=== PATIENT | male | born 1960 | race Two or more races ===

== ENCOUNTER 2018-10-23 10:18 | Emergency (ER) | payer BC ==
[2018-10-23 10:32] VITALS: BMI 29.1
[2018-10-23] MEDS ORDERED: SODIUM CHLORIDE 1,000 ML IV ONE (10:37)
[2018-10-23] MEDS ORDERED: ACETAMINOPHEN 1000 MG/100 ML VIAL (NON FORMULARY) IVPB ONE (10:37)
[2018-10-23] MEDS ORDERED: ALBUTEROL SO4 2.5/IPRATROPIUM 0.5 INH SOL 3 ML VIAL.NEB. NEB ONE ×2 (10:52→10:54)
[2018-10-23] MEDS ORDERED: methylPREDNISolone NA SUCC 125 MG/2 ML VIAL IVPUSH ONE (10:52)
[2018-10-23] MEDS ORDERED: ACETAMINOPHEN INJECTION 100 ML IVPB ONE (10:55)
[2018-10-23] MEDS ORDERED: methylPREDNISolone NA SUCC 125 MG/2 ML VIAL ONE ×2 (10:55→16:24)
[2018-10-23 10:58] LABS: VENOUS PC02 34.3 mmHg (38-52); VENOUS PH 7.47 (7.32-7.42); VENOUS PO2 37.8 mmHg (28-48)
[2018-10-23 11:02] LABS: BASO % 0.2 % (0-2.0); HEMATOCRIT 38.5 % (35.4-49); HEMOGLOBIN 13.4 GM/dL (11.7-16.9); LYMPH % 4.1 % (8-40); MCH 29.2 pg (25.7-33.7); MCHC 34.8 g/dl (32.0-35.9); MEAN CELL VOLUME 83.8 fl (80-96); MEAN PLT VOLUME 7.4 fl (7.5-11.1); MONO % 6.2 % (3.8-10.2); NEUT % 89.5 % (42.8-82.8); PLATELET COUNT 116 K/MM3 (134-434); RBC 4.59 M/mm3 (4.00-5.60); RDW 16.9 % (11.9-15.9)
[2018-10-23 11:25] LABS: INR 1.15 (0.83-1.09); PROTHROMBIN TIME (PATIENT) 13.6 SEC (9.7-13.0)
[2018-10-23 11:27] LABS: ACTIVATED PTT 29.2 SECONDS (25.2-36.5)
--- NOTE | 2018-10-23 11:36 | PDOC ---
History of Present Illness - General Chief Complaint: Shortness of Breath Stated Complaint: SICK Time Seen by Provider: 10/23/18 10:36 History Source: Patient, Family Exam Limitations: No Limitations - History of Present Illness Initial Comments: 10/23/18 11:30 58-year-old male with history of hypertension presents with sore throat, fevers , chills since last night. Family with recent influenza, patient began developing throat pain with body aches and fever/chills starting last night, slight cough but no shortness of breath, no vomiting or diarrhea. Has had progressive difficulty swallowing, no difficulty breathing. No recent travel, no recent antibiotics, no smoking. Past History - Past Medical History Allergies/Adverse Reactions: Allergies Allergy/AdvReac Type Severity Reaction Status Date / Time No Known Drug Allergies Allergy Verified 10/23/18 10:26 Home Medications: Ambulatory Orders Metoprolol Succinate [Toprol Xl] 100 mg PO DAILY 10/23/18 COPD: No HTN: Yes - Surgical History Orthopedic Surgery: Yes (BROKEN RIGHT ARM) - Immunization History Immunization Up to Date: Yes - Suicide/Smoking/Psychosocial Hx Smoking History: Never smoked Hx Alcohol Use: No Drug/Substance Use Hx: No Substance Use Type: Alcohol Hx Substance Use Treatment: No Review of Systems - Review of Systems Constitutional: Yes: Chills, Fever HEENTM: Yes: Throat Pain, Throat Swelling Respiratory: Yes: Cough, Shortness of Breath Cardiac (ROS): No: Chest Pain ABD/GI: No: Diarrhea, Nausea, Vomiting Neurological: No: Headache All Other Systems: Reviewed and Negative *Physical Exam - Vital Signs Last Vital Signs Temp Pulse Resp BP Pulse Ox 99.9 F H 122 H 22 H 115/92 93 L 10/23/18 10:26 10/23/18 10:26 10/23/18 10:26 10/23/18 10:26 10/23/18 10:26 - Physical Exam Comments: 10/23/18 11:31 Fever, tachycardia, low O2 sat GENERAL: The patient is awake, alert, and fully oriented, but in moderate distress secondary to throat pain, hot potato voice when speaking. Able to swallow but with discomfort, handling secretions. HEAD: Normal with no signs of trauma. EYES: PERRL, EOMI, sclera anicteric, conjunctiva clear with no pallor. ENT: oropharynx markedly edematous and erythematous, uvula midline but surrounded by kissing tonsils. NECK: Normal range of motion, supple with submandibular lymphadenopathy, no JVD or masses. LUNGS: Course breath sounds at the right base, scattered end expiratory wheezing but otherwise good air entry without accessory muscle use HEART: Regular rate and rhythm, normal S1 and S2 without murmur or rub. ABDOMEN: Soft/nontender/nondistended. BS wnl. No guarding or rebound. No palpable masses. No hepatosplenomegaly. EXTREMITIES: Normal range of motion, no edema. 2+ distal pulses. No cords, erythema, or tenderness. NEUROLOGICAL: Cranial nerves II through XII grossly intact. Normal speech, normal gait. PSYCH: Normal mood, normal affect. SKIN: Warm, Dry, no rashes or lesions noted. Moderate Sedation - Procedure Monitoring Vital Signs: Procedure Monitoring Vital Signs Temperature 99.9 F H 10/23/18 10:26 Pulse Rate 122 H 10/23/18 10:26 Respiratory Rate 22 H 10/23/18 10:26 Blood Pressure 115/92 10/23/18 10:26 O2 Sat by Pulse Oximetry (%) 93 L 10/23/18 10:26 Heart Score/ECG Review #1 ECG reviewed & interpreted by me at: 11:13 General ECG Interpretation: Sinus Rhythm, Normal Rate (105), Normal Intervals ( qtc 494), No acute ischemic changes ED Treatment Course - LABORATORY CBC & Chemistry Diagram: 10/23/18 10:52 10/23/18 10:52 - ADDITIONAL ORDERS Additional order review: Laboratory Results 10/23/18 10/23/18 10:52 10:52 PT with INR 13.60 H INR 1.15 H PTT (Actin FS) 29.2 VBG pH 7.47 H POC VBG pCO2 34.3 L POC VBG pO2 37.8 Mixed VBG HCO3 24.7 10/23/18 10:52 RBC 4.59 MCV 83.8 MCHC 34.8 RDW 16.9 H MPV 7.4 L Neutrophils % 89.5 H Lymphocytes % 4.1 L Monocytes % 6.2 Eosinophils % 0.0 Basophils % 0.2 - RADIOLOGY Radiology Studies Ordered: Category Date Time Status CHEST X-RAY PORTABLE* [RAD] Stat Radiology 10/23/18 10:36 Ordered - Medications Given in the ED: ED Medications Discontinued Medications Generic Name Dose Route Start Last Admin Trade Name Anu PRN Reason Stop Dose Admin Acetaminophen 1,000 mg 10/23/18 10:37 10/23/18 11:11 Ofirmev Injection - IVPB 10/23/18 10:38 1,000 mg ONCE ONE Administration Albuterol/Ipratropium 1 amp 10/23/18 10:52 10/23/18 11:11 Duoneb - NEB 10/23/18 10:53 1 amp ONCE ONE Administration Diphenhydramine HCl 50 mg 10/23/18 10:53 10/23/18 11:11 Benadryl Injection - IVPUSH 10/23/18 10:54 50 mg ONCE ONE Administration Methylprednisolone Sodium Succinate 125 mg 10/23/18 10:52 10/23/18 11:11 Solu-Medrol - IVPUSH 10/23/18 10:53 125 mg ONCE ONE Administration Medical Decision Making - Critical Care Time Total Critical Care Time (minutes): 140 Critical Care Statement: The care of this patient involved high complexity decision making to prevent further life threatening deterioration of the patient 's condition and/or to evaluate & treat vital organ system(s) failure or risk of failure. - Medical Decision Making 10/23/18 11:35 58-year-old male with febrile illness since last night, edematous oropharynx suggestive of pharyngitis, rule out underlying pneumonia or influenza. Presents with sepsis syndrome. Sepsis protocol initiated IV fluids, IV Tylenol, IV steroids, nebulizers. Add Benadryl given the edema Close airway monitoring abx for strep pharyngitis ENT consult reassess 10/23/18 15:18 White count 12 with no bands, positive neutrophilia. Lactate 3, troponin negative. Influenza negative, strep positive. Patient initially had minimal improvement after steroids and nebulizer and Benadryl, added Toradol. Patient currently feels slightly improved, rsolved stridor, but the pharyngeal edema persists with continued hoarse voice. tolerating secretions, now able to phonate better than before. ct read pending, will need transfer for ENT (no consult available) 10/23/18 16:[address], diffuse tonsillar enlargement with airway narrowing. pt clinically unchanged, phonating/protecting airway/tolerating secretions but still hoarse and with odynophagia. no ENT available, pt requests transfer to [facility]. Accepted for transfer by Dr. Pena of ENT, recommends unasyn and re-dosing of steroids, which was ordered. will proceed with transfer. *DC/Admit/Observation/Transfer Diagnosis at time of Disposition: Strep pharyngitis Sepsis Qualifiers: Sepsis type: sepsis due to unspecified organism Qualified Code(s): A41.9 - Sepsis, unspecified organism - Discharge Dispostion Condition at time of disposition: Guarded - Referrals Referrals: Wei Richey MD [Primary Care Provider] - - Patient Instructions - Post Discharge Activity - Transfer to Acute Care Facility Receiving Facility: [facility]. Accepting Physician:: Jean (ENT)
[2018-10-23] MEDS ORDERED: CEFTRIAXONE 1,000 MG in DEXTROSE 5%-WATER - 50 ML IVPB ONE (11:37)
[2018-10-23 11:38] LABS: ALBUMIN 3.4 g/dl (3.4-5.0); ALK PHOS 73 U/L (45-117); ANION GAP 13 MMOL/L (8-16); BILIRUBIN,TOTAL 1.4 mg/dL (0.2-1); BLOOD UREA NITROGEN 10 mg/dL (7-18); CALCIUM 7.6 mg/dL (8.5-10.1); CHLORIDE 95 mmol/L (98-107); CO2 23 mmol/L (21-32); CREATININE 0.9 mg/dL (0.55-1.3); GLUCOSE,RANDOM 167 mg/dL (74-106); POTASSIUM 3.6 mmol/L (3.5-5.1); SGOT/AST 69 U/L (15-37); SGPT/ALT 54 U/L (13-61); SODIUM 131 mmol/L (136-145); TOT PROT 7.2 g/dl (6.4-8.2)
[2018-10-23] MEDS ORDERED: CEFTRIAXONE 1 GM/50 ML BAG ONE (11:54)
[2018-10-23] MEDS ORDERED: KETOROLAC TROMETHAMINE 30 MG/1 ML VIAL IVPUSH ONE (11:59)
[2018-10-23] MEDS ORDERED: KETOROLAC TROMETHAMINE 30 MG/1 ML VIAL ONE (12:24)
[2018-10-23 13:11] LABS: URINE APPEARANCE CLEAR; URINE BILIRUBIN NEGATIVE (<2.0 mg/dL); URINE COLOR YELLOW; URINE GLUCOSE (UA) NEGATIVE (NEGATIVE); URINE KETONE 1+ (NEGATIVE); URINE LEUK ESTERASE NEGATIVE (NEGATIVE); URINE NITRITE NEGATIVE (NEGATIVE); URINE PROTEIN NEGATIVE (NEGATIVE); URINE UROBILINOGEN 4.0 E.U/dl mg/dL (0.2-1.0)
[2018-10-23 13:25] LABS: URINE MUCUS RARE
[2018-10-23] MEDS ORDERED: SODIUM CHLORIDE 1,000 ML IV STA (15:42)
[2018-10-23] MEDS ORDERED: AMPICILLIN NA/SULBACTAM NA 3 GM in SODIUM CHLORIDE 100 ML IVPB ONE (16:13)
[2018-10-23] MEDS ORDERED: methylPREDNISolone NA SUCC 125 MG/2 ML VIAL IVPB ONE (16:13)
--- NOTE | 2018-10-23 16:14 | EKG ---
Test Reason : Blood Pressure : / mmHG Vent. Rate : 105 BPM Atrial Rate : 105 BPM P-R Int : 156 ms QRS Dur : 104 ms QT Int : 374 ms P-R-T Axes : 014 012 036 degrees QTc Int : 494 ms SINUS TACHYCARDIA OTHERWISE NORMAL ECG WHEN COMPARED WITH ECG OF 09-OCT-2007 07:56, NO SIGNIFICANT CHANGE WAS FOUND Confirmed by ZENA TELLEZ MD ([id number]) on 10/23/2018 4:14:28 PM Referred By: Confirmed By:ZENA TELLEZ MD
[2018-10-23 16:19] VITALS: BP 143/86; PULSE 89; TEMP 98.4
== END 2018-10-23 18:08 | disposition short-term general hospital (02) ==
LOC: JER 10:18
PROC: 3E03329 Introduction of Other Anti-infective into Peripheral Vein, Percutaneous Approach (ICD-10-PCS; principal; 2018-10-23)
PROC: 3E033GC Introduction of Other Therapeutic Substance into Peripheral Vein, Percutaneous Approach (ICD-10-PCS; 2018-10-23)
PROC: 3E0337Z Introduction of Electrolytic and Water Balance Substance into Peripheral Vein, Percutaneous Approach (ICD-10-PCS; 2018-10-23)
DX: A41.9 Sepsis, unspecified organism (principal); J02.0 Streptococcal pharyngitis; I10 Essential (primary) hypertension
CPT/HCPCS: 36415; 70491-TC; 71045-TC-FY; 80053; 81003; 81015; 82803; 83605; 84484; 85025; 85610; 85730; 87040; 87186; 87804; 87880; 93005; 93010; 99283-25; J0131; J7030

== ENCOUNTER 2020-01-12 14:24 | Inpatient (IN) | payer BC ==
--- NOTE | 2020-01-12 17:52 | PDOC ---
Attending Attestation - Resident Resident Name: SamanthaJoyAriana - ED Attending Attestation I have performed the following: I have examined & evaluated the patient, The case was reviewed & discussed with the resident, I agree w/resident's findings & plan, Exceptions are as noted - HPI HPI: 01/12/20 17:51 59-year-old male who presented to the [facility] outside with complaint of sore throat for 8 days and 4 days of fever and mild cough for 3 days - Physicial Exam PE: 01/12/20 17:53 tall 59 yo male p/w fever,sore throat and cough 01/12/20 17:54 head ncat lungs cta b/l cvs tachycardia abd nontender extremities no edema skin warm and dry neuro axox3,ambulatory 01/12/20 21:10 - Medical Decision Making 01/12/20 21:13 concern for PNA/covid ct chest pending 01/13/20 01:30 CAT scan of the chest did show groundglass infiltrates and the patient required supplemental oxygen and was admitted for concerns of COVID Discharge - Discharge Information Problems reviewed: Yes Clinical Impression/Diagnosis: Hypoxia Condition: Guarded - Follow up/Referral - Patient Discharge Instructions - Post Discharge Activity
--- NOTE | 2020-01-12 18:19 | PDOC ---
History of Present Illness - General Chief Complaint: Shortness of Breath Stated Complaint: FLU LIKE SYMPTOMS Time Seen by Provider: 01/12/20 15:13 - History of Present Illness Initial Comments: 01/12/20 17:50 59 y.o. M PMH HTN, strep bacteremia 1 yr ago treated at [facility] (was intubated at this time w/ ICU stay) presenting for 8 days of generalized weakness, cough, fatigue, rhinorrhea, sore throat, shortness of breath, diffuse myalgias, abdominal pain (epigastric, non-radiating). Also endorsing 1 day of hemoptysis yesterday. Sick contacts include patients and daughter who are both getting over a cold: their symptoms are cough and rhinorrhea. Denies recent travel. Past History - Past Medical History Allergies/Adverse Reactions: Allergies Allergy/AdvReac Type Severity Reaction Status Date / Time No Known Drug Allergies Allergy Verified 10/23/18 10:26 Home Medications: Ambulatory Orders Metoprolol Succinate [Toprol Xl] 100 mg PO DAILY 10/23/18 COPD: No HTN: Yes - Surgical History Orthopedic Surgery: Yes (BROKEN RIGHT ARM) - Immunization History Immunization Up to Date: Yes - Psycho Social/Smoking Cessation Hx Smoking History: Former smoker Have you smoked in the past 12 months: No Information on smoking cessation initiated: No Hx Alcohol Use: No Drug/Substance Use Hx: No Substance Use Type: Alcohol Hx Substance Use Treatment: No Review of Systems - Review of Systems Comments:: 01/12/20 18:33 GENERAL/CONSTITUTIONAL: Fever, chills, weakness, diffuse myalgias HEENT: Sore throat, oropharynx erythematous CARDIOVASCULAR: Pleuritic chest pain RESPIRATORY: Cough, shortness of breath, hemoptysis x 1 episode yesterday GASTROINTESTINAL: Nausea. No vomiting, diarrhea or constipation. GENITOURINARY: No dysuria, frequency, or change in urination. MUSCULOSKELETAL: Diffuse myalgias SKIN: No rashes or lesions noted NEUROLOGIC: No headache, vertigo, loss of consciousness. Decreased strength HEME: No history of blood clots *Physical Exam - Vital Signs Last Vital Signs Temp Pulse Resp BP Pulse Ox 98.9 F 94 H 16 149/95 95 01/12/20 16:53 01/12/20 16:53 01/12/20 16:53 01/12/20 16:53 01/12/20 16:53 - Physical Exam 01/12/20 18:46 GENERAL: AAOx3, diaphoretic HEENT: NCAT, sclera anicteric, conjunctiva clear, oropharynx slightly erythematous NECK: Normal ROM, supple LUNGS: CTABL no wheezes/ rhonchi/ rales. No distress, speaks in full sentences. No increased work of breathing. HEART: Tachycardic, normal S1 S2, no MRG, peripheral pulses normal and equal b/l ABDOMEN: TTP epigastrium. Soft, ND, + BS. No guarding. MSK: ROM WNL. Tenderness to palpation of all extremities. EXTREMITIES: Normal inspection. No peripheral edema. NEUROLOGICAL: CN II-XII intact; no focal sensorimotor deficits. SKIN: Warm, erythematous, no rashes noted Medical Decision Making - Medical Decision Making 01/12/20 18:49 CXR, CT chest Rapid flu, RSV, resp virus panel, covid-19 testing Labs ordered: CBC, CMP, trop, cpk
[2020-01-12 19:40] LABS: BASO % 0.3 % (0-2.0); HEMATOCRIT 44.9 % (35.4-49); HEMOGLOBIN 14.9 GM/dL (11.7-16.9); LYMPH % 14.9 % (8-40); MCHC 33.3 g/dl (32.0-35.9); MEAN CELL VOLUME 84.3 fl (80-96); MEAN PLT VOLUME 8.8 fl (7.5-11.1); MONO % 6.1 % (3.8-10.2); NEUT % 78.7 % (42.8-82.8); PLATELET COUNT 225 K/MM3 (134-434); RBC 5.33 M/mm3 (4.00-5.60); RDW 14.9 % (11.9-15.9); WHITE BLOOD COUNT 6.2 K/mm3 (4.0-10.0)
[2020-01-12 19:53] LABS: INR 1.15 (0.83-1.09); PROTHROMBIN TIME (PATIENT) 13.6 SEC (9.7-13.0)
[2020-01-12 19:56] LABS: ACTIVATED PTT 34.7 SECONDS (25.2-36.5)
[2020-01-12 20:08] LABS: ALBUMIN 3.2 g/dl (3.4-5.0); BILIRUBIN,TOTAL 0.6 mg/dL (0.2-1); CALCIUM 8.1 mg/dL (8.5-10.1); CREATININE 0.7 mg/dL (0.55-1.3); TOT PROT 7.3 g/dl (6.4-8.2)
[2020-01-12] MEDS ORDERED: ACETAMINOPHEN INJECTION 100 ML IVPB ONE (20:13)
[2020-01-12 20:18] LABS: BILIRUBIN,DIRECT 0.2 mg/dL (0.0-0.2); LDH 252 U/L (87-246)
[2020-01-12] MEDS ORDERED: ACETAMINOPHEN 1000 MG/100 ML VIAL (NON FORMULARY) IVPB ONE (20:56)
--- NOTE | 2020-01-12 21:28 | PDOC ---
History of Present Illness - General Chief Complaint: Shortness of Breath Stated Complaint: FLU LIKE SYMPTOMS Time Seen by Provider: 01/12/20 15:13 - History of Present Illness Initial Comments: Patient signed out by Dr. Singh 59 y.o. M PMH HTN, strep bacteremia 1 yr ago treated at [facility] (was intubated at this time w/ ICU stay) presenting for 8 days of generalized weakness, cough, fatigue, rhinorrhea, sore throat, shortness of breath, diffuse myalgias, abdominal pain (epigastric, non-radiating). EKG: rate 94, QTc 467, NSR 01/12/20 21:25 CBC WBC 6.2 K/mm3 (4.0-10.0) 01/12/20 19:00 RBC 5.33 M/mm3 (4.00-5.60) 01/12/20 19:00 Hgb 14.9 GM/dL (11.7-16.9) 01/12/20 19:00 Hct 44.9 % (35.4-49) D 01/12/20 19:00 MCV 84.3 fl (80-96) 01/12/20 19:00 MCH 28.0 pg (25.7-33.7) 01/12/20 19:00 MCHC 33.3 g/dl (32.0-35.9) 01/12/20 19:00 RDW 14.9 % (11.9-15.9) D 01/12/20 19:00 Plt Count 225 K/MM3 (134-434) D 01/12/20 19:00 MPV 8.8 fl (7.5-11.1) D 01/12/20 19:00 Absolute Neuts (auto) 4.9 K/mm3 (1.5-8.0) 01/12/20 19:00 Neutrophils % 78.7 % (42.8-82.8) 01/12/20 19:00 Lymphocytes % 14.9 % (8-40) D 01/12/20 19:00 Monocytes % 6.1 % (3.8-10.2) 01/12/20 19:00 Eosinophils % 0.0 % (0-4.5) 01/12/20 19:00 Basophils % 0.3 % (0-2.0) 01/12/20 19:00 Nucleated RBC % 0 % (0-0) 01/12/20 19:00 No leukocytosis or anemia CMP Sodium 137 mmol/L (136-145) 01/12/20 19:00 Potassium 4.0 mmol/L (3.5-5.1) 01/12/20 19:00 Chloride 105 mmol/L (98-107) 01/12/20 19:00 Carbon Dioxide 23 mmol/L (21-32) 01/12/20 19:00 Anion Gap 10 MMOL/L (8-16) 01/12/20 19:00 BUN 12.0 mg/dL (7-18) 01/12/20 19:00 Creatinine 0.7 mg/dL (0.55-1.3) 01/12/20 19:00 Est GFR (CKD-EPI)AfAm 118.05 01/12/20 19:00 Est GFR (CKD-EPI)NonAf 101.85 01/12/20 19:00 Random Glucose 111 mg/dL (74-106) H 01/12/20 19:00 Lactic Acid 0.9 mmol/L (0.4-2.0) 01/12/20 19:00 Calcium 8.1 mg/dL (8.5-10.1) L 01/12/20 19:00 Ferritin 328.3 ng/ml (8-388) 01/12/20 19:00 Total Bilirubin 0.6 mg/dL (0.2-1) 01/12/20 19:00 Direct Bilirubin 0.2 mg/dL (0.0-0.2) 01/12/20 19:00 AST 35 U/L (15-37) 01/12/20 19:00 ALT 33 U/L (13-61) 01/12/20 19:00 Alkaline Phosphatase 67 U/L (45-117) 01/12/20 19:00 LD Total 252 U/L (87-246) H 01/12/20 19:00 Creatine Kinase 72 U/L (26-308) 01/12/20 19:00 Troponin I < 0.02 ng/ml (0.00-0.05) 01/12/20 19:00 Total Protein 7.3 g/dl (6.4-8.2) 01/12/20 19:00 Albumin 3.2 g/dl (3.4-5.0) L 01/12/20 19:00 Electrolytes unremarkable Normal Cr Tpn undetectable Normal lactate CT Chest: "EXAM#: TYPE/EXAM: RESULT: [id number] CT/CHEST CT WITHOUT CONTRAST Chest CT without contrast Clinical information: evaluate for covid Multiplanar imaging was performed. Intravenous contrast was not administered. In comparison to a prior chest CT exam of 03/16/2011 interval development of bilateral subpleural g roundglass infiltrates are seen within the upper and lower lobes bilaterally and also within the rig ht middle lobe. Note is also made of bilateral lower lobe discoid atelectasis. No pleural effusion is seen. There is no definite cardiac enlargement. No pericardial effusion is seen. Mild fusiform aneurysmal dilatation of the ascending aorta is noted with a 4 cm diameter, previously measuring 3.6 cm. The trachea and central bronchial demonstrate no ob vious pathology. There is no obvious lymphadenopathy on noncontrast imaging. The visualized osseous structures demonstrate no obvious acute abnormality. Diffuse fatty infiltration of the liver is seen as well as mild splenomegaly (14.5 cm length). Impression: Bilateral upper and lower lung field peripheral groundglass interstitial infiltrates are noted suggestive of COVID-19 pneumonitis. Bilateral lower lobe discoid atelectasis. Mild fusiform aneurysmal dilatation of the ascending aorta is noted with a 4 cm diameter, previously measuring 3.6 cm. Diffuse hepatic steatosis is noted as well as mild splenomegaly.. These findings demonstrate no obvious interval change in comparison to an abdomen/pelvic CT study of 12/12/2016. Reported By: Mauricio Tomlinson MD 01/12/20 2127 " 01/12/20 21:33 Discussed case with Alfonso Rodriguez who accepted patient for admission under Dr. Boudreaux 01/12/20 23:40 Past History - Past Medical History Allergies/Adverse Reactions: Allergies Allergy/AdvReac Type Severity Reaction Status Date / Time No Known Drug Allergies Allergy Verified 10/23/18 10:26 Home Medications: Ambulatory Orders Metoprolol Succinate [Toprol Xl] 100 mg PO DAILY 10/23/18 COPD: No HTN: Yes - Surgical History Orthopedic Surgery: Yes (BROKEN RIGHT ARM) - Immunization History Immunization Up to Date: Yes - Psycho Social/Smoking Cessation Hx Smoking History: Former smoker Have you smoked in the past 12 months: No Information on smoking cessation initiated: No Hx Alcohol Use: No Drug/Substance Use Hx: No Substance Use Type: Alcohol Hx Substance Use Treatment: No *Physical Exam - Vital Signs Last Vital Signs Temp Pulse Resp BP Pulse Ox 100.7 F H 98 H 22 H 136/92 95 01/12/20 20:22 01/12/20 20:10 01/12/20 20:10 01/12/20 20:10 01/12/20 20:10 ED Treatment Course - LABORATORY CBC & Chemistry Diagram: 01/13/20 06:59 01/13/20 06:59 - ADDITIONAL ORDERS Additional order review: Laboratory Results 01/12/20 01/12/20 01/12/20 19:00 19:00 19:00 PT with INR INR PTT (Actin FS) D-Dimer Sodium 137 Potassium 4.0 Chloride 105 Carbon Dioxide 23 Anion Gap 10 BUN 12.0 Creatinine 0.7 Est GFR (CKD-EPI)AfAm 118.05 Est GFR (CKD-EPI)NonAf 101.85 Random Glucose 111 H Lactic Acid 0.9 Calcium 8.1 L Ferritin 328.3 Total Bilirubin 0.6 Direct Bilirubin 0.2 AST 35 ALT 33 Alkaline Phosphatase 67 LD Total 252 H Creatine Kinase 72 Troponin I < 0.02 Total Protein 7.3 Albumin 3.2 L 01/12/20 01/12/20 19:00 19:00 PT with INR 13.60 H INR 1.15 H PTT (Actin FS) 34.7 D-Dimer 722 H Sodium Potassium Chloride Carbon Dioxide Anion Gap BUN Creatinine Est GFR (CKD-EPI)AfAm Est GFR (CKD-EPI)NonAf Random Glucose Lactic Acid Calcium Ferritin Total Bilirubin Direct Bilirubin AST ALT Alkaline Phosphatase LD Total Creatine Kinase Troponin I Total Protein Albumin 01/12/20 19:00 RBC 5.33 MCV 84.3 MCHC 33.3 RDW 14.9 D MPV 8.8 D Neutrophils % 78.7 Lymphocytes % 14.9 D Monocytes % 6.1 Eosinophils % 0.0 Basophils % 0.3 - Medications Given in the ED: ED Medications Discontinued Medications Generic Name Dose Route Start Last Admin Trade Name Freq PRN Reason Stop Dose Admin Acetaminophen 1,000 mg 01/12/20 20:56 01/12/20 20:56 Ofirmev Injection - IVPB 01/12/20 20:57 1,000 mg NOW ONE Administration Discharge - Discharge Information Problems reviewed: Yes Clinical Impression/Diagnosis: Hypoxia, Suspected 2019 novel coronavirus infection Condition: Guarded - Admission Yes - Follow up/Referral - Patient Discharge Instructions - Post Discharge Activity
[2020-01-12 21:41] LABS: PH,URINE 6.5 (5.0-8.0); URINE APPEARANCE CLEAR; URINE BILIRUBIN NEGATIVE (NEGATIVE); URINE COLOR DK YELLOW; URINE GLUCOSE (UA) NEGATIVE (NEGATIVE); URINE KETONE NEGATIVE (NEGATIVE); URINE LEUK ESTERASE NEGATIVE (NEGATIVE); URINE NITRITE NEGATIVE (NEGATIVE); URINE PROTEIN TRACE (NEGATIVE)
--- NOTE | 2020-01-13 00:34 | HP ---
CHIEF COMPLAINT: cough, SOB PCP: Rossi HISTORY OF PRESENT ILLNESS: This is a 59 year old male with a past medical history of HTN and strep bacteremia 1 y ago who presented to the ED with an 8 day history of cough, SOB, weakness, sore/dry throat. ER course was notable for: (1) CT chest with bilateral groundglass interstitial infiltrates (2) WBC 6.2 with 14.9% lymphocytes (3) D-Dimer 722, LDH 252 (4) Influenza A/B & RSV negative Recent Travel: pt denies PAST MEDICAL HISTORY: HTN, strep bacteremia 1y ago PAST SURGICAL HISTORY: hernia repair, ventral with mesh Social History: Smoking: pt denies Alcohol: pt denies Drugs: pt denies Occupation: works cleaning/stripping floors in [employer] Allergies No Known Drug Allergies Allergy (Verified 10/23/18 10:26) HOME MEDICATIONS: Pt denies current medications, states he was on metoprolol but it was DC as his BP was WNL REVIEW OF SYSTEMS CONSTITUTIONAL: Present: generalized weakness, malaise Absent: fever, chills, diaphoresis, loss of appetite, weight change HEENT: Absent: rhinorrhea, nasal congestion, throat pain, throat swelling, difficulty swallowing, mouth swelling, ear pain, eye pain, visual changes CARDIOVASCULAR: Absent: chest pain, syncope, palpitations, irregular heart rate, lightheadedness, peripheral edema RESPIRATORY: Present: cough, shortness of breath Absent: orthopnea, wheezing, stridor, hemoptysis GASTROINTESTINAL: Absent: abdominal pain, abdominal distension, nausea, vomiting, diarrhea, constipation, melena, hematochezia GENITOURINARY: Absent: dysuria, frequency, urgency, hesitancy, hematuria, flank pain, genital pain MUSCULOSKELETAL: Absent: myalgia, arthralgia, joint swelling, back pain, neck pain SKIN: Absent: rash, itching, pallor HEMATOLOGIC/IMMUNOLOGIC: Absent: easy bleeding, easy bruising, lymphadenopathy, frequent infections ENDOCRINE: Absent: unexplained weight gain, unexplained weight loss, heat intolerance, cold intolerance NEUROLOGIC: Absent: headache, focal weakness or paresthesias, dizziness, unsteady gait, seizure, mental status changes, bladder or bowel incontinence PSYCHIATRIC: Absent: anxiety, depression, suicidal or homicidal ideation, hallucinations. PHYSICAL EXAMINATION Vital Signs - 24 hr 01/12/20 01/12/20 01/12/20 15:17 16:53 20:10 Temperature 99.0 F 98.9 F 105 F H Pulse Rate 103 H 94 H Pulse Rate [ 98 H Right Radial] Respiratory 20 16 22 H Rate Blood Pressure 146/96 149/95 Blood Pressure 136/92 [Right Arm] O2 Sat by Pulse 100 95 95 Oximetry (%) 01/12/20 20:22 Temperature 100.7 F H Pulse Rate Pulse Rate [ Right Radial] Respiratory Rate Blood Pressure Blood Pressure [Right Arm] O2 Sat by Pulse Oximetry (%) GENERAL: Awake, alert, and fully oriented, in no acute distress. HEAD: Normal with no signs of trauma. EYES: Pupils equal, round and reactive to light, extraocular movements intact, sclera anicteric, conjunctiva clear. No lid lag. EARS, NOSE, THROAT: Ears normal, nares patent, oropharynx clear without exudates. Moist mucous membranes. NECK: Normal range of motion, supple without lymphadenopathy, JVD, or masses. LUNGS: Breath sounds equal. No wheezes. No accessory muscle use. Initially with crackles bilat bases, cleared with deep breathing, now CTA HEART: Regular rate and rhythm, normal S1 and S2 without murmur, rub or gallop. ABDOMEN: Soft, nontender, not distended, normoactive bowel sounds, no guarding, no rebound, no masses. No hepatomegaly or splenomegaly. MUSCULOSKELETAL: Normal range of motion at all joints. No bony deformities or tenderness. No CVA tenderness. UPPER EXTREMITIES: 2+ pulses, warm, well-perfused. No cyanosis. No clubbing. No peripheral edema. LOWER EXTREMITIES: 2+ pulses, warm, well-perfused. No calf tenderness. No peripheral edema. NEUROLOGICAL: Cranial nerves II-XII intact. Normal speech. Normal gait. PSYCHIATRIC: Cooperative. Good eye contact. Appropriate mood and affect. SKIN: Warm, dry, normal turgor, no rashes or lesions noted, normal capillary refill. Laboratory Results - last 24 hr 01/12/20 01/12/20 01/12/20 19:00 19:00 19:00 WBC 6.2 RBC 5.33 Hgb 14.9 Hct 44.9 D MCV 84.3 MCH 28.0 MCHC 33.3 RDW 14.9 D Plt Count 225 D MPV 8.8 D Absolute Neuts (auto) 4.9 Neutrophils % 78.7 Lymphocytes % 14.9 D Monocytes % 6.1 Eosinophils % 0.0 Basophils % 0.3 Nucleated RBC % 0 PT with INR 13.60 H INR 1.15 H PTT (Actin FS) 34.7 D-Dimer 722 H Sodium 137 Potassium 4.0 Chloride 105 Carbon Dioxide 23 Anion Gap 10 BUN 12.0 Creatinine 0.7 Est GFR (CKD-EPI)AfAm 118.05 Est GFR (CKD-EPI)NonAf 101.85 Random Glucose 111 H Lactic Acid 0.9 Calcium 8.1 L Ferritin 328.3 Total Bilirubin 0.6 Direct Bilirubin 0.2 AST 35 ALT 33 Alkaline Phosphatase 67 LD Total 252 H Creatine Kinase 72 Troponin I < 0.02 Total Protein 7.3 Albumin 3.2 L Urine Color Urine Appearance Urine pH Ur Specific [place] Urine Protein Urine Glucose (UA) Urine Ketones Urine Blood Urine Nitrite Urine Bilirubin Urine Urobilinogen Ur Leukocyte Esterase Influenza A (Rapid) Influenza B (Rapid) RSV Rapid 01/12/20 01/12/20 01/12/20 19:16 19:16 21:00 WBC RBC Hgb Hct MCV MCH MCHC RDW Plt Count MPV Absolute Neuts (auto) Neutrophils % Lymphocytes % Monocytes % Eosinophils % Basophils % Nucleated RBC % PT with INR INR PTT (Actin FS) D-Dimer Sodium Potassium Chloride Carbon Dioxide Anion Gap BUN Creatinine Est GFR (CKD-EPI)AfAm Est GFR (CKD-EPI)NonAf Random Glucose Lactic Acid Calcium Ferritin Total Bilirubin Direct Bilirubin AST ALT Alkaline Phosphatase LD Total Creatine Kinase Troponin I Total Protein Albumin Urine Color Dk yellow Urine Appearance Clear Urine pH 6.5 Ur Specific [place] 1.024 Urine Protein Trace Urine Glucose (UA) Negative Urine Ketones Negative Urine Blood Negative Urine Nitrite Negative Urine Bilirubin Negative Urine Urobilinogen 2.0 Ur Leukocyte Esterase Negative Influenza A (Rapid) Negative Influenza B (Rapid) Negative RSV Rapid Negative Radiology Reports CT chest without contrast Impression: Bilateral upper and lower lung field peripheral ground glass interstitial infiltrates are noted suggestive of COVID-19 pneumonitis. Bilateral lower lobe discoid atelectasis. Mild fusiform aneurysmal dilatation of the ascending aorta is noted with a 4 cm diameter, previously measuring 3.6 cm. Diffuse hepatic steatosis is noted as well as mild splenomegaly. These findings demonstrate no obvious interval change in comparison to an abdomen/pelvic CT study of 12/12/2016. Reported By: Mauricio Tomlinson MD 01/12/202126 ECG Normal sinus rhythm vent rate 94, QTC [address]/T wave changes ASSESSMENT/PLAN: 59yM with PMH HTN, Strep bacteremia p/w cough, SOB, malaise now admitted with pneumonia, highly suspicious for COVID19. Early acute respiratory failure in s/o CAP likely due to COVID19 - f/u COVID 19 results - cont oxygen via NC, titrate to SPO2>92 - ceftriaxone 1g IV x 7 days and azithromycin IV x 3 days - albuterol MDI 2 puffs q4h PRN SOB - incentive spirometer - ID consult for possible plaquenil initiation - no IV fluids, conservative fluid management approach HTN - off meds, monitor BP and initiate as indicated DVT PPX - heparin SC FEN - po fluids as tolerated - BMP, replete lytes PRN - low sodium diet as tolerated Dispo: Pt requires inpatient management of his emergent condition. Family Medical History Family Hx Diabetes: Mother (), Father () Visit type - Emergency Visit Emergency Visit: Yes ED Registration Date: 01/12/20 Care time: The patient presented to the Emergency Department on the above date and was hospitalized for further evaluation of their emergent condition. - New Patient This patient is new to me today: Yes Date on this admission: 01/13/20 - Critical Care Critical Care patient: No
[2020-01-13] MEDS ORDERED: BENZOCAINE/MENTH/CETYLPYRD CL 1 EACH LOZENGE MM PRN (03:17)
[2020-01-13] MEDS ORDERED: CEFTRIAXONE 1 GM/50 ML BAG ONE (03:17)
[2020-01-13] MEDS: CEFTRIAXONE 1 GM in DEXTROSE 5%-WATER - 50 ML IVPB SCH ×2 (03:31→09:39)
[2020-01-13] MEDS ORDERED: ALBUTEROL SO4 HFA INHALER IH PRN ×2 (03:50→03:51)
[2020-01-13 07:20] LABS: BASO % 0.2 % (0-2.0); EOS % 0.2 % (0-4.5); HEMATOCRIT 40.9 % (35.4-49); HEMOGLOBIN 13.9 GM/dL (11.7-16.9); LYMPH % 19.1 % (8-40); MCH 28.4 pg (25.7-33.7); MEAN CELL VOLUME 83.6 fl (80-96); MEAN PLT VOLUME 8.3 fl (7.5-11.1); MONO % 6.9 % (3.8-10.2); NEUT % 73.6 % (42.8-82.8); PLATELET COUNT 214 K/MM3 (134-434); RBC 4.89 M/mm3 (4.00-5.60); RDW 14.7 % (11.9-15.9); WHITE BLOOD COUNT 5.8 K/mm3 (4.0-10.0)
[2020-01-13 07:59] LABS: ALBUMIN 2.8 g/dl (3.4-5.0); BILIRUBIN,TOTAL 0.6 mg/dL (0.2-1); BLOOD UREA NITROGEN 12.2 mg/dL (7-18); CALCIUM 7.7 mg/dL (8.5-10.1); CREATININE 0.7 mg/dL (0.55-1.3); PHOSPHOROUS 3.4 mg/dL (2.5-4.9); TOT PROT 6.6 g/dl (6.4-8.2)
[2020-01-13] MEDS ORDERED: AZITHROMYCIN IVPB 500 MG/250 ML BAG IVPB ONE (09:24)
[2020-01-13] MEDS ORDERED: HEPARIN NA (PORCINE) 5,000 UNITS/ML 1ML VIAL ONE ×2 (09:24→23:13)
[2020-01-13] MEDS: HEPARIN NA (PORCINE) 5,000 UNITS/ML 1ML VIAL SQ SCH ×2 (09:38→23:21)
[2020-01-13] MEDS ORDERED: AZITHROMYCIN IVPB 500 MG/250 ML BAG IVPB SCH (10:00)
--- NOTE | 2020-01-13 10:18 | EKG ---
Test Reason : Blood Pressure : / mmHG Vent. Rate : 094 BPM Atrial Rate : 094 BPM P-R Int : 152 ms QRS Dur : 104 ms QT Int : 374 ms P-R-T Axes : 018 -04 027 degrees QTc Int : 467 ms NORMAL SINUS RHYTHM NORMAL ECG WHEN COMPARED WITH ECG OF 23-OCT-2018 11:13, NO SIGNIFICANT CHANGE WAS FOUND Confirmed by Freddie Valverde MD ([id number]) on 01/13/2020 10:18:16 AM Referred By: Confirmed By:Freddie Valverde MD
--- NOTE | 2020-01-13 14:47 | PN ---
Progress Note (short form) - Note Progress Note: Events noted History and physical from the hospitalist noted Pt not examined due to lack of PPE Pt observed to be comfortable in ER- no respiratory distress Vital Signs - 24 hr 01/12/20 01/12/20 01/13/20 20:10 20:22 03:42 Temperature 105 F H 100.7 F H Pulse Rate [ 98 H 84 Right Radial] Respiratory 22 H 20 Rate Blood Pressure 136/92 131/85 [Right Arm] O2 Sat by Pulse 95 96 Oximetry (%) 01/13/20 01/13/20 07:00 13:31 Temperature 99.0 F 98.7 F Pulse Rate [ 88 93 H Right Radial] Respiratory 16 19 Rate Blood Pressure 138/79 136/87 [Right Arm] O2 Sat by Pulse 98 97 Oximetry (%) Current Medications Generic Name Dose Route Start Last Admin Trade Name Freq PRN Reason Stop Dose Admin Albuterol Sulfate 2 puff 01/13/20 03:51 Ventolin Hfa Inhaler - IH Q4H PRN SHORT OF BREATH/WHEEZING Benzocaine/Menthol 1 each 01/13/20 03:17 Cepacol Lozenge - MM PRN PRN SORE THROAT Heparin Sodium (Porcine) 5,000 unit 01/13/20 10:00 01/13/20 09:38 Heparin - SQ 5,000 unit BID EKATERINA Administration Azithromycin 500 mg in 250 mls @ 250 mls/hr 01/13/20 10:00 01/13/20 09:38 Zithromax 500mg Ivpb (Pre-Docked) IVPB 01/15/20 10:59 250 mls/hr DAILY EKATERINA Administration Ceftriaxone Sodium 1 gm/ 50 mls @ 100 mls/hr 01/13/20 00:47 01/13/20 09:39 Dextrose IVPB 01/20/20 00:46 Not Given DAILY EKATERINA Protocol Laboratory Last Values WBC 5.8 K/mm3 (4.0-10.0) 01/13/20 06:59 RBC 4.89 M/mm3 (4.00-5.60) 01/13/20 06:59 Hgb 13.9 GM/dL (11.7-16.9) 01/13/20 06:59 Hct 40.9 % (35.4-49) 01/13/20 06:59 MCV 83.6 fl (80-96) 01/13/20 06:59 MCH 28.4 pg (25.7-33.7) 01/13/20 06:59 MCHC 34.0 g/dl (32.0-35.9) 01/13/20 06:59 RDW 14.7 % (11.9-15.9) 01/13/20 06:59 Plt Count 214 K/MM3 (134-434) 01/13/20 06:59 MPV 8.3 fl (7.5-11.1) 01/13/20 06:59 Absolute Neuts (auto) 4.3 K/mm3 (1.5-8.0) 01/13/20 06:59 Neutrophils % 73.6 % (42.8-82.8) 01/13/20 06:59 Lymphocytes % 19.1 % (8-40) D 01/13/20 06:59 Monocytes % 6.9 % (3.8-10.2) 01/13/20 06:59 Eosinophils % 0.2 % (0-4.5) D 01/13/20 06:59 Basophils % 0.2 % (0-2.0) 01/13/20 06:59 Nucleated RBC % 0 % (0-0) 01/13/20 06:59 PT with INR 13.60 SEC (9.7-13.0) H 01/12/20 19:00 INR 1.15 (0.83-1.09) H 01/12/20 19:00 PTT (Actin FS) 34.7 SECONDS (25.2-36.5) 01/12/20 19:00 D-Dimer 722 ng/ml (0-500) H 01/12/20 19:00 Sodium 137 mmol/L (136-145) 01/13/20 06:59 Potassium 4.0 mmol/L (3.5-5.1) 01/13/20 06:59 Chloride 105 mmol/L (98-107) 01/13/20 06:59 Carbon Dioxide 25 mmol/L (21-32) 01/13/20 06:59 Anion Gap 7 MMOL/L (8-16) L 01/13/20 06:59 BUN 12.2 mg/dL (7-18) 01/13/20 06:59 Creatinine 0.7 mg/dL (0.55-1.3) 01/13/20 06:59 Est GFR (CKD-EPI)AfAm 118.05 01/13/20 06:59 Est GFR (CKD-EPI)NonAf 101.85 01/13/20 06:59 Random Glucose 112 mg/dL (74-106) H 01/13/20 06:59 Lactic Acid 0.9 mmol/L (0.4-2.0) 01/12/20 19:00 Calcium 7.7 mg/dL (8.5-10.1) L 01/13/20 06:59 Phosphorus 3.4 mg/dL (2.5-4.9) 01/13/20 06:59 Magnesium 2.0 mg/dL (1.8-2.4) 01/13/20 06:59 Ferritin 328.3 ng/ml (8-388) 01/12/20 19:00 Total Bilirubin 0.6 mg/dL (0.2-1) 01/13/20 06:59 Direct Bilirubin 0.2 mg/dL (0.0-0.2) 01/12/20 19:00 AST 37 U/L (15-37) 01/13/20 06:59 ALT 31 U/L (13-61) 01/13/20 06:59 Alkaline Phosphatase 58 U/L (45-117) 01/13/20 06:59 LD Total 252 U/L (87-246) H 01/12/20 19:00 Creatine Kinase 72 U/L (26-308) 01/12/20 19:00 Troponin I < 0.02 ng/ml (0.00-0.05) 01/12/20 19:00 Total Protein 6.6 g/dl (6.4-8.2) 01/13/20 06:59 Albumin 2.8 g/dl (3.4-5.0) L 01/13/20 06:59 Urine Color Dk yellow 01/12/20 21:00 Urine Appearance Clear 01/12/20 21:00 Urine pH 6.5 (5.0-8.0) 01/12/20 21:00 Ur Specific [place] 1.024 (1.010-1.035) 01/12/20 21:00 Urine Protein Trace (NEGATIVE) 01/12/20 21:00 Urine Glucose (UA) Negative (NEGATIVE) 01/12/20 21:00 Urine Ketones Negative (NEGATIVE) 01/12/20 21:00 Urine Blood Negative (NEGATIVE) 01/12/20 21:00 Urine Nitrite Negative (NEGATIVE) 01/12/20 21:00 Urine Bilirubin Negative (NEGATIVE) 01/12/20 21:00 Urine Urobilinogen 2.0 mg/dL (0.2-1.0) 01/12/20 21:00 Ur Leukocyte Esterase Negative (NEGATIVE) 01/12/20 21:00 COVID-19 (NOLVIA) Cancelled 01/12/20 20:55 Influenza A (Rapid) Negative (Negative) 01/12/20 19:16 Influenza B (Rapid) Negative (Negative) 01/12/20 19:16 RSV Rapid Negative (Negative) 01/12/20 19:16 cultures both blood and urine pending COVID 19--I called the lab-- they received the specimen-- not cancelled PLAN ASSESSMENT/PLAN: 59yM with PMH HTN, Strep bacteremia p/w cough, SOB, malaise now admitted with pneumonia, highly suspicious for COVID19. Early acute respiratory failure in s/o CAP likely due to COVID19 - f/u COVID 19 results - cont oxygen via NC, titrate to SPO2>92 - ceftriaxone 1g IV x 7 days and azithromycin IV x 3 days - albuterol MDI 2 puffs q4h PRN SOB - incentive spirometer - ID consult for possible plaquenil initiation - no IV fluids, conservative fluid management approach HTN - off meds,BP acceptable DVT PPX - heparin SC FEN - po fluids as tolerated - BMP, replete lytes PRN - low sodium diet as tolerated Problem List - Problems (1) Acute respiratory distress Code(s): R06.03 - ACUTE RESPIRATORY DISTRESS (2) Pneumonia Code(s): J18.9 - PNEUMONIA, UNSPECIFIED ORGANISM (3) Hypoxia Code(s): R09.02 - HYPOXEMIA (4) Sepsis Code(s): A41.9 - SEPSIS, UNSPECIFIED ORGANISM Qualifiers: Sepsis type: sepsis due to unspecified organism Qualified Code(s): A41.9 - Sepsis, unspecified organism
--- NOTE | 2020-01-13 17:14 | PN ---
Progress Note (short form) - Note Progress Note: ID CONSULT DICTATED HIGH PROBABILITY COVID-19 INFECTION AIRBORNE PRECAUTIONS START HYDROXYCHLOROQUINE
--- NOTE | 2020-01-13 18:05 | CONS ---
DATE OF CONSULTATION: DATE OF DICTATION: 01/13/2020 HISTORY OF PRESENT ILLNESS: The patient is a 59-year-old male who was evaluated for probable coronavirus. He was admitted to the hospital with a 1-week history of sore throat, a 3-4 day history of fever, cough, shortness of breath, arthralgias, myalgias. He had apparently been in contact with family members who had similar symptoms. He was evaluated in the emergency room where Covid-19 testing was performed. His course has been complicated by high-grade fever to 105. At the present time he is awake, supine on the stretcher. He complains of sore throat. His breathing is nonlabored on nasal cannula O2. PAST MEDICAL HISTORY: Positive for hypertension. PAST SURGICAL HISTORY: Status post ventral hernia repair with mesh. ALLERGIES: No known drug allergies. MEDICATIONS: Include ceftriaxone, Zithromax, albuterol, heparin. SOCIAL HISTORY: He resides in the community with his family. He works stripping floors. He is a former smoker, occasional ETOH. SYSTEMS REVIEW: Neurologic: No loss of consciousness, seizure activity or focal weakness. Cardiac: Negative chest pain or palpitations. Respiratory: As per HPI. Gastrointestinal: Negative vomiting, positive diarrhea. Genitourinary: Negative for urinary tract infection. LABORATORY DATA: White count 5.8, 73 neutrophils, 19 lymphocytes, 6 monocytes. Hematocrit 40.9. Platelets 214. Creatinine 0.7. Urinalysis negative. Influenza and RSV swabs negative. CAT scan of the chest shows ground glass infiltrates bilaterally. PHYSICAL EXAMINATION: General: He is awake, supine in the stretcher. His breathing is nonlabored on nasal cannula O2. Vital Signs: Temperature 98.7, T-Max 105, blood pressure 136/87, pulse 93, regular, respirations 19 per minute. HEENT: Sclerae are anicteric. Oropharynx injected. Heart Sounds: S1, S2. Lungs: Scattered rhonchi. Abdomen: Soft, nontender. Extremities: Negative for edema. IMPRESSION: 1. High probability Covid-19 infection. 2. Community-acquired pneumonia less likely. PLAN: Agree with airborne precautions pending Covid-19 testing. Start Plaquenil 400 mg p.o. b.i.d. for 24 hours, then 200 mg p.o. every 12 hours. Ceftriaxone 2 g IV piggyback daily for possible secondary bacterial infection. Will follow. Thank you for your kind referral. KESHIA MURPHY M.D. [id number]
[2020-01-13] MEDS ORDERED: CEFTRIAXONE 2 GM/100 ML BAG IVPB ONE (18:08)
[2020-01-13] MEDS: CEFTRIAXONE 2 GM in DEXTROSE 5%-WATER 100 ML IVPB SCH (18:20)
[2020-01-13] MEDS ORDERED: HYDROXYCHLOROQUINE SO4 200 MG TABLET (FP) ONE (23:13)
[2020-01-13] MEDS: HYDROXYCHLOROQUINE SO4 200 MG TABLET (FP) PO SCH (23:21)
[2020-01-14 01:47] VITALS: BMI 27.3
[2020-01-14] MEDS: HEPARIN NA (PORCINE) 5,000 UNITS/ML 1ML VIAL SQ SCH ×2 (10:24→23:36)
[2020-01-14] MEDS: HYDROXYCHLOROQUINE SO4 200 MG TABLET (FP) PO SCH ×2 (10:24→23:37)
[2020-01-14] MEDS ORDERED: DEXTROSE 5%-WATER 100 ML IVPB ONE (11:15)
--- NOTE | 2020-01-14 11:43 | PN ---
Progress Note (short form) - Note Progress Note: Events noted pt examined on isolation has a headache fever this AM sore throat no SOB No coughing no diarrhea Vital Signs - 24 hr 01/13/20 01/13/20 01/13/20 13:31 20:39 20:40 Temperature 98.7 F Pulse Rate Pulse Rate [ 93 H 102 H Right Radial] Respiratory 19 18 Rate Blood Pressure Blood Pressure 136/87 139/83 [Right Arm] O2 Sat by Pulse 97 95 94 L Oximetry (%) 01/14/20 01/14/20 01/14/20 00:52 01:21 04:00 Temperature 102 F H 99.1 F Pulse Rate 83 85 Pulse Rate [ Right Radial] Respiratory 20 18 20 Rate Blood Pressure 140/100 131/85 Blood Pressure [Right Arm] O2 Sat by Pulse 93 L 93 L Oximetry (%) Current Medications Generic Name Dose Route Start Last Admin Trade Name Freq PRN Reason Stop Dose Admin Acetaminophen 650 mg 01/14/20 09:40 Tylenol - PO Q6H PRN FEVER Albuterol Sulfate 2 puff 01/13/20 03:51 Ventolin Hfa Inhaler - IH Q4H PRN SHORT OF BREATH/WHEEZING Benzocaine/Menthol 1 each 01/13/20 03:17 01/13/20 18:42 Cepacol Lozenge - MM 1 each PRN PRN Administration SORE THROAT Heparin Sodium (Porcine) 5,000 unit 01/13/20 10:00 01/13/20 23:21 Heparin - SQ 5,000 unit BID EKATERINA Administration Hydroxychloroquine Sulfate 200 mg 01/14/20 22:00 Plaquenil - PO BID [facility] Ceftriaxone Sodium 2 gm/ 100 mls @ 200 mls/hr 01/13/20 17:15 01/13/20 18:20 Dextrose IVPB 200 mls/hr DAILY EKATERINA Administration Protocol Laboratory Results - last 24 hr 01/12/20 20:55 COVID-19 (NOLVIA) Cancelled Microbiology 01/12/20 21:00 Urine Culture - Final Urine - Urine Clean Catch NO GROWTH OBTAINED 01/12/20 19:00 Blood Culture - Preliminary Blood - Peripheral Venous NO GROWTH OBTAINED AFTER 24 HOURS, INCUBATION TO CONTINUE FOR 4 DAYS. 01/12/20 19:00 Blood Culture - Preliminary Blood - Peripheral Venous NO GROWTH OBTAINED AFTER 24 HOURS, INCUBATION TO CONTINUE FOR 4 DAYS. COVID 19--I called the lab-- they received the specimen-- not cancelled PLAN ASSESSMENT/PLAN: 59yM with PMH HTN, Strep bacteremia p/w cough, SOB, malaise now admitted with pneumonia, highly suspicious for COVID19. Early acute respiratory failure in s/o CAP likely due to COVID19 - f/u COVID 19 results - cont oxygen via [place], titrate to SPO2>92 - ceftriaxone 1g IV x 7 days and azithromycin IV x 3 days - albuterol MDI 2 puffs q4h PRN SOB - incentive spirometer - ID consult noted on plaquenil - no IV fluids, conservative fluid management approach HTN - will resume meds DVT PPX - heparin SC FEN - po fluids as tolerated - BMP, replete lytes PRN - low sodium diet as tolerated Problem List - Problems (1) Acute respiratory distress Code(s): R06.03 - ACUTE RESPIRATORY DISTRESS (2) Pneumonia Code(s): J18.9 - PNEUMONIA, UNSPECIFIED ORGANISM (3) Hypoxia Code(s): R09.02 - HYPOXEMIA (4) Sepsis Code(s): A41.9 - SEPSIS, UNSPECIFIED ORGANISM Qualifiers: Sepsis type: sepsis due to unspecified organism Qualified Code(s): A41.9 - Sepsis, unspecified organism
[2020-01-14] MEDS: CEFTRIAXONE 2 GM in DEXTROSE 5%-WATER 100 ML IVPB SCH (12:24)
[2020-01-15 07:37] LABS: HEMATOCRIT 39.8 % (35.4-49); HEMOGLOBIN 13.4 GM/dL (11.7-16.9); MCH 28.1 pg (25.7-33.7); MCHC 33.5 g/dl (32.0-35.9); MEAN CELL VOLUME 83.8 fl (80-96); MEAN PLT VOLUME 8.2 fl (7.5-11.1); PLATELET COUNT 289 K/MM3 (134-434); RBC 4.75 M/mm3 (4.00-5.60); RDW 14.6 % (11.9-15.9); WHITE BLOOD COUNT 6.1 K/mm3 (4.0-10.0)
[2020-01-15 08:13] LABS: ALBUMIN 2.7 g/dl (3.4-5.0); BILIRUBIN,TOTAL 0.7 mg/dL (0.2-1); BLOOD UREA NITROGEN 12.4 mg/dL (7-18); CALCIUM 8.1 mg/dL (8.5-10.1); CREATININE 0.6 mg/dL (0.55-1.3); POTASSIUM 4.2 mmol/L (3.5-5.1); TOT PROT 6.8 g/dl (6.4-8.2)
[2020-01-15] MEDS ORDERED: DEXTROSE 5%-WATER 100 ML IVPB ONE (09:43)
[2020-01-15] MEDS: HEPARIN NA (PORCINE) 5,000 UNITS/ML 1ML VIAL SQ SCH ×2 (10:13→22:02)
[2020-01-15] MEDS: HYDROXYCHLOROQUINE SO4 200 MG TABLET (FP) PO SCH ×2 (10:14→22:02)
[2020-01-15] MEDS: CEFTRIAXONE 2 GM in DEXTROSE 5%-WATER 100 ML IVPB SCH (10:15)
[2020-01-15] MEDS: ACETAMINOPHEN 325 MG TABLET (FP) PO PRN ×2 (10:24→22:03)
--- NOTE | 2020-01-15 13:45 | PN ---
Progress Note, Physician History of Present Illness: pt seen/ examined today chart is reviewed awake/ comfortable c/c- sore throat covid + - Current Medication List Current Medications: Active Medications Acetaminophen (Tylenol -) 650 mg PO Q6H PRN PRN Reason: FEVER Last Admin: 01/15/20 10:24 Dose: 650 mg Documented by: Albuterol Sulfate (Ventolin Hfa Inhaler -) 2 puff IH Q4H PRN PRN Reason: SHORT OF BREATH/WHEEZING Benzocaine/Menthol (Cepacol Lozenge -) 1 each MM PRN PRN PRN Reason: SORE THROAT Last Admin: 01/13/20 18:42 Dose: 1 each Documented by: Heparin Sodium (Porcine) (Heparin -) 5,000 unit SQ BID [facility] Last Admin: 01/15/20 10:13 Dose: 5,000 unit Documented by: Hydroxychloroquine Sulfate (Plaquenil -) 200 mg PO BID [facility] Last Admin: 01/15/20 10:14 Dose: 200 mg Documented by: Ceftriaxone Sodium 2 gm/ (Dextrose) 100 mls @ 200 mls/hr IVPB DAILY [facility]; Protocol Last Admin: 01/15/20 10:15 Dose: 200 mls/hr Documented by: Metoprolol Succinate (Toprol Xl -) 100 mg PO DAILY [facility] Last Admin: 01/15/20 10:13 Dose: 100 mg Documented by: - Objective Vital Signs: Vital Signs Temperature 97.5 F L 01/15/20 06:00 Pulse Rate 73 01/15/20 06:00 Respiratory Rate 20 01/15/20 06:00 Blood Pressure 124/82 01/15/20 06:00 O2 Sat by Pulse Oximetry (%) 96 01/14/20 21:00 Constitutional: Yes: No Distress, Calm Eyes: Yes: Conjunctiva Clear Neck: Yes: Supple Cardiovascular: Yes: Regular Rate and Rhythm Respiratory: Yes: Rhonchi Gastrointestinal: Yes: Soft Edema: No Neurological: Yes: Alert Psychiatric: Yes: Alert Labs: CBC, BMP 01/15/20 07:15 01/15/20 07:15 INR, PTT INR 1.15 (0.83-1.09) H 01/12/20 19:00 - ....Imaging Chest X-ray: Report Reviewed Cat Scan: Report Reviewed Problem List - Problems (1) Coronavirus infection Code(s): B34.2 - CORONAVIRUS INFECTION, UNSPECIFIED (2) Pneumonia Code(s): J18.9 - PNEUMONIA, UNSPECIFIED ORGANISM Assessment/Plan Covid 19 +. Clinically stable. Continue present care. Monitor labs Will follow D/W RN also. Time spend approx 30 min
[2020-01-16 07:33] LABS: BASO % 0.6 % (0-2.0); EOS % 2.2 % (0-4.5); HEMATOCRIT 43.1 % (35.4-49); HEMOGLOBIN 14.3 GM/dL (11.7-16.9); MCH 28.2 pg (25.7-33.7); MCHC 33.3 g/dl (32.0-35.9); MEAN CELL VOLUME 84.6 fl (80-96); MEAN PLT VOLUME 8.2 fl (7.5-11.1); MONO % 9.5 % (3.8-10.2); NEUT % 62.7 % (42.8-82.8); PLATELET COUNT 383 K/MM3 (134-434); RDW 14.2 % (11.9-15.9); WHITE BLOOD COUNT 5.4 K/mm3 (4.0-10.0)
[2020-01-16 08:00] LABS: BILIRUBIN,TOTAL 0.8 mg/dL (0.2-1); BLOOD UREA NITROGEN 12.2 mg/dL (7-18); CALCIUM 8.5 mg/dL (8.5-10.1); CREATININE 0.8 mg/dL (0.55-1.3); POTASSIUM 4.4 mmol/L (3.5-5.1); TOT PROT 7.6 g/dl (6.4-8.2)
[2020-01-16] MEDS ORDERED: DEXTROSE 5%-WATER 100 ML IVPB ONE (08:23)
[2020-01-16] MEDS: CEFTRIAXONE 2 GM in DEXTROSE 5%-WATER 100 ML IVPB SCH (10:28)
[2020-01-16] MEDS: HYDROXYCHLOROQUINE SO4 200 MG TABLET (FP) PO SCH ×2 (10:28→22:32)
[2020-01-16] MEDS: HEPARIN NA (PORCINE) 5,000 UNITS/ML 1ML VIAL SQ SCH ×2 (10:28→22:32)
--- NOTE | 2020-01-16 16:44 | PN ---
Progress Note (short form) - Note Progress Note: Events noted pt examined on isolation low grade fever nasal congestion no bm since Saturday slight SOB Vital Signs - 24 hr 01/15/20 01/15/20 01/15/20 18:00 21:00 22:00 Temperature 97.8 F 100.1 F H Pulse Rate 73 81 Respiratory 18 18 Rate Blood Pressure 129/93 135/95 O2 Sat by Pulse 98 Oximetry (%) 01/16/20 01/16/20 01/16/20 02:00 06:00 09:00 Temperature 98.2 F 98.3 F Pulse Rate 79 71 Respiratory 18 18 18 Rate Blood Pressure 139/90 138/84 O2 Sat by Pulse 98 Oximetry (%) 01/16/20 01/16/20 10:00 14:00 Temperature 98 F 98.5 F Pulse Rate 71 77 Respiratory 18 17 Rate Blood Pressure 131/84 128/85 O2 Sat by Pulse Oximetry (%) Current Medications Generic Name Dose Route Start Last Admin Trade Name Freq PRN Reason Stop Dose Admin Acetaminophen 650 mg 01/14/20 09:40 01/15/20 22:03 Tylenol - PO 650 mg Q6H PRN Administration FEVER Albuterol Sulfate 2 puff 01/13/20 03:51 Ventolin Hfa Inhaler - IH Q4H PRN SHORT OF BREATH/WHEEZING Benzocaine/Menthol 1 each 01/13/20 03:17 01/13/20 18:42 Cepacol Lozenge - MM 1 each PRN PRN Administration SORE THROAT Fluticasone Propionate 2 spray 01/16/20 14:45 Flonase - NS DAILY EKATERINA Heparin Sodium (Porcine) 5,000 unit 01/13/20 10:00 01/16/20 10:28 Heparin - SQ 5,000 unit BID EKATERINA Administration Hydroxychloroquine Sulfate 200 mg 01/14/20 22:00 01/16/20 10:28 Plaquenil - PO 200 mg BID EKATERINA Administration Ceftriaxone Sodium 2 gm/ 100 mls @ 200 mls/hr 01/13/20 17:15 01/16/20 10:28 Dextrose IVPB 200 mls/hr DAILY EKATERINA Administration Protocol Metoprolol Succinate 100 mg 01/14/20 12:15 01/16/20 10:28 Toprol Xl - PO 100 mg DAILY EKATERINA Administration Polyethylene Glycol 17 gm 01/16/20 14:45 Miralax (For Daily Use) - PO DAILY [facility] Laboratory Results - last 24 hr 01/16/20 01/16/20 07:00 07:00 WBC 5.4 RBC 5.10 Hgb 14.3 Hct 43.1 MCV 84.6 MCH 28.2 MCHC 33.3 RDW 14.2 Plt Count 383 D MPV 8.2 Absolute Neuts (auto) 3.4 Neutrophils % 62.7 Lymphocytes % 25.0 D Monocytes % 9.5 Eosinophils % 2.2 D Basophils % 0.6 Nucleated RBC % 0 Sodium 138 Potassium 4.4 Chloride 104 Carbon Dioxide 29 Anion Gap 4 L BUN 12.2 Creatinine 0.8 Est GFR (CKD-EPI)AfAm 111.74 Est GFR (CKD-EPI)NonAf 96.41 Random Glucose 107 H Calcium 8.5 Total Bilirubin 0.8 AST 31 ALT 40 Alkaline Phosphatase 65 Total Protein 7.6 Albumin 3.0 L Microbiology 01/12/20 21:00 Urine Culture - Final Urine - Urine Clean Catch NO GROWTH OBTAINED 01/12/20 19:00 Blood Culture - Preliminary Blood - Peripheral Venous NO GROWTH OBTAINED AFTER 24 HOURS, INCUBATION TO CONTINUE FOR 4 DAYS. 01/12/20 19:00 Blood Culture - Preliminary Blood - Peripheral Venous NO GROWTH OBTAINED AFTER 24 HOURS, INCUBATION TO CONTINUE FOR 4 DAYS. COVID 19--I called the lab-- they received the specimen-- not cancelled PLAN ASSESSMENT/PLAN: 59yM with PMH HTN, Strep bacteremia p/w cough, SOB, malaise now admitted with pneumonia, COVID19. Early acute respiratory failure in s/o CAP due to COVID19 - cont oxygen via NC, titrate to SPO2>92 - ceftriaxone 1g IV x 7 days and azithromycin IV x 3 days - albuterol MDI 2 puffs q4h PRN SOB - incentive spirometer - ID consult noted on plaquenil - no IV fluids, conservative fluid management approach HTN - will resume meds DVT PPX - heparin SC FEN - po fluids as tolerated - BMP, replete lytes PRN - low sodium diet as tolerated miralax daily add flonase Problem List - Problems (1) Acute respiratory distress Code(s): R06.03 - ACUTE RESPIRATORY DISTRESS (2) Pneumonia Code(s): J18.9 - PNEUMONIA, UNSPECIFIED ORGANISM (3) Hypoxia Code(s): R09.02 - HYPOXEMIA (4) Sepsis Code(s): A41.9 - SEPSIS, UNSPECIFIED ORGANISM Qualifiers: Sepsis type: sepsis due to unspecified organism Qualified Code(s): A41.9 - Sepsis, unspecified organism
[2020-01-16] MEDS: FLUTICASONE PROP 0.05% 16 GM NASAL SPRAY NS SCH (18:43)
[2020-01-16] MEDS: POLYETHYLENE GLYCOL 3350 119 GM BTL PO SCH (18:44)
[2020-01-17] MEDS ORDERED: PT OWN MED DRAWER 7, Y5N ONE (08:25)
[2020-01-17] MEDS ORDERED: DEXTROSE 5%-WATER 100 ML IVPB ONE (08:26)
[2020-01-17] MEDS: FLUTICASONE PROP 0.05% 16 GM NASAL SPRAY NS SCH (10:11)
[2020-01-17] MEDS: HEPARIN NA (PORCINE) 5,000 UNITS/ML 1ML VIAL SQ SCH ×2 (10:11→21:00)
[2020-01-17] MEDS: POLYETHYLENE GLYCOL 3350 119 GM BTL PO SCH (10:12)
[2020-01-17] MEDS: HYDROXYCHLOROQUINE SO4 200 MG TABLET (FP) PO SCH ×2 (10:13→21:00)
[2020-01-17] MEDS: CEFTRIAXONE 2 GM in DEXTROSE 5%-WATER 100 ML IVPB SCH (10:14)
--- NOTE | 2020-01-17 16:12 | PN ---
Progress Note (short form) - Note Progress Note: Events noted pt examined on isolation no fever he feels better today not using O2 Vital Signs - 24 hr 01/16/20 01/16/20 01/17/20 18:00 21:00 02:00 Temperature 99 F 98.4 F 97.6 F Pulse Rate 80 76 70 Respiratory 18 16 18 Rate Blood Pressure 131/92 128/83 122/80 O2 Sat by Pulse 96 Oximetry (%) 01/17/20 01/17/20 01/17/20 06:00 09:00 10:00 Temperature 98.8 F 98.2 F Pulse Rate 71 71 Respiratory 18 18 18 Rate Blood Pressure 122/89 121/86 O2 Sat by Pulse 94 L Oximetry (%) 01/17/20 13:37 Temperature 98.2 F Pulse Rate 69 Respiratory 18 Rate Blood Pressure 122/92 O2 Sat by Pulse Oximetry (%) Current Medications Generic Name Dose Route Start Last Admin Trade Name Freq PRN Reason Stop Dose Admin Acetaminophen 650 mg 01/14/20 09:40 01/15/20 22:03 Tylenol - PO 650 mg Q6H PRN Administration FEVER Albuterol Sulfate 2 puff 01/13/20 03:51 Ventolin Hfa Inhaler - IH Q4H PRN SHORT OF BREATH/WHEEZING Benzocaine/Menthol 1 each 01/13/20 03:17 01/13/20 18:42 Cepacol Lozenge - MM 1 each PRN PRN Administration SORE THROAT Fluticasone Propionate 2 spray 01/16/20 14:45 01/17/20 10:11 Flonase - NS 2 spray DAILY EKATERINA Administration Heparin Sodium (Porcine) 5,000 unit 01/13/20 10:00 01/17/20 10:11 Heparin - SQ 5,000 unit BID EKATERINA Administration Hydroxychloroquine Sulfate 200 mg 01/14/20 22:00 01/17/20 10:13 Plaquenil - PO 200 mg BID EKATERINA Administration Ceftriaxone Sodium 2 gm/ 100 mls @ 200 mls/hr 01/13/20 17:15 01/17/20 10:14 Dextrose IVPB 200 mls/hr DAILY EKATERINA Administration Protocol Metoprolol Succinate 100 mg 01/14/20 12:15 01/17/20 10:14 Toprol Xl - PO 100 mg DAILY EKATERINA Administration Polyethylene Glycol 17 gm 01/16/20 14:45 01/17/20 10:12 Miralax (For Daily Use) - PO 17 gm DAILY EKATERINA Administration ASSESSMENT/PLAN: 59yM with PMH HTN, Strep bacteremia p/w cough, SOB, malaise now admitted with pneumonia, COVID19. - continue ceftriaxone - albuterol MDI 2 puffs q4h PRN SOB - incentive spirometer - ID consult noted on plaquenil - no IV fluids, conservative fluid management approach HTN - will resume meds DVT PPX - heparin SC FEN - po fluids as tolerated - BMP, replete lytes PRN - low sodium diet as tolerated miralax daily clinically better dc planning- if pt asymptomatic- may dc tomorrow Problem List - Problems (1) Acute respiratory distress Code(s): R06.03 - ACUTE RESPIRATORY DISTRESS (2) Pneumonia Code(s): J18.9 - PNEUMONIA, UNSPECIFIED ORGANISM (3) Hypoxia Code(s): R09.02 - HYPOXEMIA (4) Sepsis Code(s): A41.9 - SEPSIS, UNSPECIFIED ORGANISM Qualifiers: Sepsis type: sepsis due to unspecified organism Qualified Code(s): A41.9 - Sepsis, unspecified organism
[2020-01-18] MEDS ORDERED: DEXTROSE 5%-WATER 100 ML IVPB ONE (08:58)
[2020-01-18] MEDS: HEPARIN NA (PORCINE) 5,000 UNITS/ML 1ML VIAL SQ SCH (10:02)
[2020-01-18] MEDS: CEFTRIAXONE 2 GM in DEXTROSE 5%-WATER 100 ML IVPB SCH (10:03)
[2020-01-18] MEDS: HYDROXYCHLOROQUINE SO4 200 MG TABLET (FP) PO SCH (10:05)
[2020-01-18] MEDS: POLYETHYLENE GLYCOL 3350 119 GM BTL PO SCH (10:05)
--- NOTE | 2020-01-18 11:13 | DS ---
Physical Examination Vital Signs: Vital Signs Temperature 98.2 F 01/18/20 05:00 Pulse Rate 68 01/18/20 05:00 Respiratory Rate 16 01/18/20 05:00 Blood Pressure 135/88 01/18/20 05:00 O2 Sat by Pulse Oximetry (%) 95 01/17/20 21:00 Findings/Remarks: Pt seen/ examined feels well no complains says much better wants to go home Constitutional: Yes: No Distress, Calm Eyes: Yes: Conjunctiva Clear Neck: Yes: Supple Cardiovascular: Yes: Regular Rate and Rhythm Respiratory: Yes: CTA Bilaterally, Rhonchi (few - scattered) Gastrointestinal: Yes: Soft Edema: No Neurological: Yes: Alert Psychiatric: Yes: Alert Labs: CBC, BMP 01/16/20 07:00 01/16/20 07:00 Discharge Summary Problems reviewed: Yes Reason For Visit: SUSPECTED 2019 NOVEL INFECTION Current Active Problems Acute respiratory distress (Acute) Coronavirus infection (Acute) Hypoxia (Acute) Pneumonia (Acute) Suspected 2019 novel coronavirus infection (Acute) Hospital Course: Admitted due to cpugh/sob Covid 19 + treated with abx/ plaquenil got better saturating well finished 5 day course of Plaquenil Discussed d/c home pt to stay Home Quarentine till he is fully better x atleast 3 days Pt to follow with his pmd Meds reconciled. D/W Rn also D/c time in examining/ documenting and coordinating care-- approx 45 min. Condition: Improved - Instructions Diet, Activity, Other Instructions: Home quarantine x atleast 3 days -after becoming asymptomatic. Disposition: HOME - Home Medications Comprehensive Discharge Medication List: Ambulatory Orders Metoprolol Succinate [Toprol Xl] 100 mg PO DAILY 10/23/18 Acetaminophen [Tylenol .Regular Strength -] 650 mg PO Q6H PRN tablet 01/18/20 Albuterol Sulfate Inhaler - [Ventolin HFA Inhaler -] 2 puff IH Q4H PRN inhaler 01/18/20 Polyethylene Glycol 3350 [Miralax 119 gm Btl -] 17 gm PO DAILY PRN #1 bottle 01/18/20
[2020-01-18 11:17] VITALS: BP 118/84; TEMP 97.8
[2020-01-18] MEDS: FLUTICASONE PROP 0.05% 16 GM NASAL SPRAY NS SCH (13:36)
[2020-01-18 13:38] VITALS: PULSE 74
== END 2020-01-18 13:45 | disposition home or self-care (01) | DRG 193 ==
LOC: JER 14:24 → JERBED 23:41 → J4S 01-14 01:02
PROVIDERS: ADMIT Internal Medicine; ATTEND Internal Medicine
PROC: 8E0ZXY6 Isolation (ICD-10-PCS; principal; 2020-01-12)
DX: J12.89 Other viral pneumonia (principal); J96.00 Acute respiratory failure, unspecified whether with hypoxia or hypercapnia; J98.11 Atelectasis; B97.29 Other coronavirus as the cause of diseases classified elsewhere; I10 Essential (primary) hypertension; Z87.891 Personal history of nicotine dependence; R16.1 Splenomegaly, not elsewhere classified; K76.0 Fatty (change of) liver, not elsewhere classified
CPT/HCPCS: 36415; 71045-TC-FY; 71250-TC; 80053; 81003; 82248; 82550; 82728; 83605; 83615; 83735; 84100; 84484; 85025; 85027; 85379; 85610; 85730; 87040; 87086; 87389; 87633; 87804; 87807; 93005; 93010; 99285-25; J0131; J1644; U0001

== ENCOUNTER 2021-04-25 22:45 | Inpatient (IN) | payer BC ==
[2021-04-26] MEDS ORDERED: ACETAMINOPHEN 1000 MG/100 ML VIAL (NON FORMULARY) IVPB ONE (00:03)
[2021-04-26] MEDS ORDERED: ONDANSETRON 4 MG/2 ML VIAL IVPUSH PRN (00:03)
[2021-04-26] MEDS ORDERED: ACETAMINOPHEN INJECTION 100 ML IVPB ONE (00:32)
[2021-04-26] MEDS ORDERED: ONDANSETRON 4 MG/2 ML VIAL ONE (00:32)
[2021-04-26 00:58] LABS: BASO % 0.8 % (0-2.0); EOS % 0.6 % (0-4.5); HEMOGLOBIN 14.8 GM/dL (11.7-16.9); LYMPH % 12.9 % (8-40); MCHC 33.6 g/dl (32.0-35.9); MEAN CELL VOLUME 86.3 fl (80-96); MEAN PLT VOLUME 7.9 fl (7.5-11.1); MONO % 6.6 % (3.8-10.2); NEUT % 79.1 % (42.8-82.8); PLATELET COUNT 281 10^3/uL (134-434); RDW 16.1 % (11.9-15.9); WHITE BLOOD COUNT 10.8 K/mm3 (4.0-10.0)
[2021-04-26 01:08] LABS: INR 0.99 (0.83-1.09)
[2021-04-26 01:16] LABS: CHLORIDE 106 mmol/L (98-107); SODIUM 141 mmol/L (136-145)
[2021-04-26 01:19] LABS: ALBUMIN 3.6 g/dl (3.4-5.0); ANION GAP 9 MMOL/L (8-16); BLOOD UREA NITROGEN 16.4 mg/dL (7-18); CALCIUM 8.3 mg/dL (8.5-10.1); CO2 26 mmol/L (21-32); GLUCOSE,RANDOM 208 mg/dL (74-106); LIPASE 140 U/L (73-393)
[2021-04-26 01:22] LABS: CREATININE 0.9 mg/dL (0.55-1.3); SGOT/AST 32 U/L (15-37); SGPT/ALT 47 U/L (13-61)
[2021-04-26 01:24] LABS: BILIRUBIN,TOTAL 0.3 mg/dL (0.2-1); TOT PROT 7.6 g/dl (6.4-8.2)
[2021-04-26 01:25] LABS: ALK PHOS 114 U/L (45-117)
[2021-04-26 01:35] LABS: LACTIC ACID 2.2 mmol/L (0.4-2.0)
[2021-04-26] MEDS ORDERED: SODIUM CHLORIDE 0.9% 500 ML INFUS.BAG IV ONE (02:58)
[2021-04-26] MEDS ORDERED: PIPERACILLIN/TAZOB 4.5 GM 4.5 GM in DEXTROSE 5%-WATER 100 ML IVPB ONE (04:43)
[2021-04-26] MEDS ORDERED: morphine SULFATE 4 MG/ML VIAL IVPUSH PRN (04:47)
[2021-04-26] MEDS ORDERED: PIPERACILLIN/TAZOB 4.5 GM 4.5 GM/100 ML BAG IVPB ONE (04:58)
[2021-04-26] MEDS: SODIUM CHLORIDE 1,000 ML IV SCH (05:14)
[2021-04-26 05:27] LABS: URINE APPEARANCE CLEAR; URINE BILIRUBIN NEGATIVE (NEGATIVE); URINE COLOR YELLOW; URINE GLUCOSE (UA) NEGATIVE (NEGATIVE); URINE KETONE NEGATIVE (NEGATIVE); URINE LEUK ESTERASE NEGATIVE (NEGATIVE); URINE NITRITE NEGATIVE (NEGATIVE); URINE PROTEIN NEGATIVE (NEGATIVE)
[2021-04-26] MEDS ORDERED: HEPARIN NA (PORCINE) 5,000 UNITS/ML 1ML VIAL ONE ×2 (09:24→09:34)
[2021-04-26] MEDS: HEPARIN NA (PORCINE) 5,000 UNITS/ML 1ML VIAL SQ SCH ×2 (09:41→21:26)
[2021-04-26] MEDS ORDERED: DEXTROSE 5%-WATER 100 ML IVPB ONE ×2 (10:56→12:22)
[2021-04-26] MEDS ORDERED: PIPERACILLIN/TAZOBACTAM 4.5 GM VIAL IVPB ONE (10:56)
[2021-04-26] MEDS: ACETAMINOPHEN 1000 MG/100 ML VIAL (NON FORMULARY) IVPB PRN (11:02)
[2021-04-26] MEDS ORDERED: PIPERACILLIN/TAZOB 4.5 GM 4.5 GM in DEXTROSE 5%-WATER 100 ML IVPB SCH (12:00)
[2021-04-26] MEDS: CEFTRIAXONE 2 GM in DEXTROSE 5%-WATER 2 GM/100 ML BAG IVPB SCH (12:24)
[2021-04-26] MEDS ORDERED: ALBUTEROL SO4 HFA INHALER IH PRN (12:52)
[2021-04-26] MEDS: amLODIPine BESYLATE 5 MG TABLET (FP) PO SCH (14:22)
[2021-04-26 17:57] VITALS: BMI 28.0
[2021-04-26] MEDS ORDERED: FLU VACCINE (FLULAVAL) PF 60 MCG/0.5 ML SYRINGE 2020-2021 IM ONE (17:57)
[2021-04-26] MEDS ORDERED: DONEPEZIL HCL 10 MG TABLET (FP) PO SCH (22:00)
[2021-04-27] MEDS: ACETAMINOPHEN 1000 MG/100 ML VIAL (NON FORMULARY) IVPB PRN (02:13)
[2021-04-27] MEDS: SODIUM CHLORIDE 1,000 ML IV SCH ×3 (02:14→17:39)
[2021-04-27] MEDS ORDERED: DEXTROSE 5%-WATER 100 ML IVPB ONE (09:33)
[2021-04-27] MEDS: CEFTRIAXONE 2 GM in DEXTROSE 5%-WATER 2 GM/100 ML BAG IVPB SCH (09:41)
[2021-04-27] MEDS: amLODIPine BESYLATE 5 MG TABLET (FP) PO SCH (09:42)
[2021-04-27] MEDS: HEPARIN NA (PORCINE) 5,000 UNITS/ML 1ML VIAL SQ SCH ×2 (09:42→21:13)
[2021-04-27] MEDS ORDERED: PIPERACILLIN/TAZOB 4.5 GM 4.5 GM in DEXTROSE 5%-WATER 100 ML IVPB SCH (10:00)
[2021-04-27] MEDS ORDERED: MIDAZOLAM HCL 2 MG/2 ML SINGLE DOSE VIAL ONE (11:25)
[2021-04-27] MEDS ORDERED: LIDOCAINE HCL 1%, 10 MG/ML (20ML VIAL) ONE (11:37)
[2021-04-27] MEDS ORDERED: BUPIVACAINE HCL 50 ML ONE (11:37)
[2021-04-27] MEDS ORDERED: LIDOCAINE HCL 1% PRESERVATIVE FREE - 30ML VIAL IJ ONE (12:49)
[2021-04-27] MEDS ORDERED: BUPIVACAINE HCL/PF 0.5% (5 MG/ML) 30 ML VIAL IJ ONE (12:49)
[2021-04-27] MEDS ORDERED: ONDANSETRON 4 MG/2 ML VIAL ONE (13:05)
[2021-04-27] MEDS ORDERED: LIDOCAINE HCL/PF 2% SDV 5ML VIAL ONE (13:05)
[2021-04-27] MEDS ORDERED: LIDOCAINE HCL 2% JELLY (5 ML/TUBE) ONE (13:05)
[2021-04-27] MEDS ORDERED: DEXAMETHASONE SOD PHOSPHATE 4 MG/1 ML VIAL ONE (13:05)
[2021-04-27] MEDS ORDERED: GLYCOPYRROLATE 0.2 MG/1 ML VIAL ONE ×3 (13:06)
[2021-04-27] MEDS ORDERED: NEOSTIGMINE METHYLSULFATE 0.5 MG/ML - 10 ML MDV ONE (13:06)
[2021-04-27] MEDS ORDERED: PROPOFOL 20 ML ONE (13:39)
[2021-04-27] MEDS ORDERED: ACETAMINOPHEN 1000 MG/100 ML VIAL (NON FORMULARY) IVPB ONE (14:29)
[2021-04-27] MEDS ORDERED: ALBUTEROL SO4 HFA INHALER IH PRN (15:47)
[2021-04-27] MEDS ORDERED: ONDANSETRON 4 MG/2 ML VIAL IVPUSH PRN (15:47)
[2021-04-27] MEDS: morphine SULFATE 4 MG/ML VIAL IVPUSH PRN (17:38)
[2021-04-27] MEDS: DONEPEZIL HCL 10 MG TABLET (FP) PO SCH (21:13)
[2021-04-28] MEDS: morphine SULFATE 4 MG/ML VIAL IVPUSH PRN ×3 (02:05→17:55)
[2021-04-28] MEDS: SODIUM CHLORIDE 1,000 ML IV SCH ×2 (07:50→15:48)
[2021-04-28 09:27] LABS: BASO % 0.2 % (0-2.0); EOS % 0.1 % (0-4.5); HEMATOCRIT 41.6 % (35.4-49); HEMOGLOBIN 13.7 GM/dL (11.7-16.9); LYMPH % 11.5 % (8-40); MCH 28.8 pg (25.7-33.7); MCHC 33.1 g/dl (32.0-35.9); MEAN PLT VOLUME 8.4 fl (7.5-11.1); MONO % 5.6 % (3.8-10.2); NEUT % 82.6 % (42.8-82.8); PLATELET COUNT 262 10^3/uL (134-434); RBC 4.78 M/mm3 (4.00-5.60); RDW 15.9 % (11.9-15.9); WHITE BLOOD COUNT 10.5 K/mm3 (4.0-10.0)
[2021-04-28] MEDS ORDERED: DEXTROSE 5%-WATER 100 ML IVPB ONE (10:02)
[2021-04-28 10:04] LABS: ALBUMIN 3.1 g/dl (3.4-5.0); CALCIUM 8.2 mg/dL (8.5-10.1)
[2021-04-28 10:05] LABS: BLOOD UREA NITROGEN 16.4 mg/dL (7-18)
[2021-04-28 10:08] LABS: CREATININE 0.9 mg/dL (0.55-1.3)
[2021-04-28 10:09] LABS: BILIRUBIN,TOTAL 0.8 mg/dL (0.2-1); TOT PROT 6.6 g/dl (6.4-8.2)
[2021-04-28] MEDS: amLODIPine BESYLATE 5 MG TABLET (FP) PO SCH (10:32)
[2021-04-28] MEDS: HEPARIN NA (PORCINE) 5,000 UNITS/ML 1ML VIAL SQ SCH ×2 (10:33→22:43)
[2021-04-28] MEDS: CEFTRIAXONE 2 GM in DEXTROSE 5%-WATER 2 GM/100 ML BAG IVPB SCH (10:33)
[2021-04-28] MEDS: POLYETHYLENE GLYCOL (HEALTHYLAX) 3350 17 GM PACKET PO SCH (15:33)
[2021-04-28] MEDS: DOCUSATE SODIUM 100 MG CAPSULE (FP) PO SCH (22:43)
[2021-04-28] MEDS: DONEPEZIL HCL 10 MG TABLET (FP) PO SCH (22:43)
[2021-04-29] MEDS: SODIUM CHLORIDE 1,000 ML IV SCH ×2 (02:05→23:38)
[2021-04-29] MEDS: DOCUSATE SODIUM 100 MG CAPSULE (FP) PO SCH ×3 (06:22→21:22)
[2021-04-29] MEDS ORDERED: DEXTROSE 5%-WATER 100 ML IVPB ONE (09:16)
[2021-04-29 09:31] LABS: BASO % 0.7 % (0-2.0); EOS % 1.1 % (0-4.5); HEMATOCRIT 41.9 % (35.4-49); HEMOGLOBIN 13.7 GM/dL (11.7-16.9); LYMPH % 17.4 % (8-40); MCH 28.6 pg (25.7-33.7); MCHC 32.8 g/dl (32.0-35.9); MEAN CELL VOLUME 87.4 fl (80-96); MEAN PLT VOLUME 8.5 fl (7.5-11.1); MONO % 7.4 % (3.8-10.2); NEUT % 73.4 % (42.8-82.8); PLATELET COUNT 233 10^3/uL (134-434); RBC 4.79 M/mm3 (4.00-5.60); RDW 16.1 % (11.9-15.9)
[2021-04-29] MEDS: CEFTRIAXONE 2 GM in DEXTROSE 5%-WATER 2 GM/100 ML BAG IVPB SCH (09:52)
[2021-04-29] MEDS: amLODIPine BESYLATE 5 MG TABLET (FP) PO SCH (09:53)
[2021-04-29] MEDS: HEPARIN NA (PORCINE) 5,000 UNITS/ML 1ML VIAL SQ SCH ×2 (09:53→21:22)
[2021-04-29] MEDS: POLYETHYLENE GLYCOL (HEALTHYLAX) 3350 17 GM PACKET PO SCH (09:53)
[2021-04-29 10:06] LABS: ALBUMIN 3.2 g/dl (3.4-5.0); BLOOD UREA NITROGEN 9.4 mg/dL (7-18); CALCIUM 8.2 mg/dL (8.5-10.1)
[2021-04-29 10:10] LABS: CREATININE 0.7 mg/dL (0.55-1.3)
[2021-04-29 10:11] LABS: BILIRUBIN,TOTAL 0.7 mg/dL (0.2-1); TOT PROT 6.6 g/dl (6.4-8.2)
[2021-04-29] MEDS: DONEPEZIL HCL 10 MG TABLET (FP) PO SCH (21:22)
[2021-04-30] MEDS ORDERED: BISACODYL 10 MG SUPP.RECT PR PRN (04:05)
[2021-04-30] MEDS: DOCUSATE SODIUM 100 MG CAPSULE (FP) PO SCH ×2 (06:16→13:32)
[2021-04-30] MEDS: POLYETHYLENE GLYCOL (HEALTHYLAX) 3350 17 GM PACKET PO SCH (09:53)
[2021-04-30] MEDS: amLODIPine BESYLATE 5 MG TABLET (FP) PO SCH (09:53)
[2021-04-30] MEDS: HEPARIN NA (PORCINE) 5,000 UNITS/ML 1ML VIAL SQ SCH (09:54)
[2021-04-30 14:36] VITALS: BP 137/84; PULSE 67; TEMP 98.4
[2021-04-30] MEDS ORDERED: DEXTROSE 5%-WATER 100 ML IVPB ONE (15:39)
[2021-04-30] MEDS ORDERED: CEFTRIAXONE 2 GM in DEXTROSE 5%-WATER 2 GM/100 ML BAG IVPB SCH (15:45)
[2021-05-01] MEDS ORDERED: CEFTRIAXONE 2 GM in DEXTROSE 5%-WATER 2 GM/100 ML BAG IVPB SCH (15:30)
== END 2021-04-30 16:45 | disposition home or self-care (01) | DRG 418 ==
LOC: JER 22:45 → JERBED 04-26 04:56 → J6S 04-26 10:16
PROVIDERS: ADMIT Internal Medicine; ATTEND Internal Medicine
PROC: 0FT44ZZ Resection of Gallbladder, Percutaneous Endoscopic Approach (ICD-10-PCS; principal; 2021-04-27 11:30)
DX: K80.12 Calculus of gallbladder with acute and chronic cholecystitis without obstruction (principal); E87.2 Acidosis; E83.51 Hypocalcemia; I10 Essential (primary) hypertension; R10.11 Right upper quadrant pain; E66.9 Obesity, unspecified; Z68.28 Body mass index [BMI] 28.0-28.9, adult
CPT/HCPCS: 36415; 71046-TC-FY; 74019-TC-FY; 74174-TC; 76705-TC; 80053; 81003; 82550; 83605; 83690; 84484; 85025; 85610; 85730; 86850; 86900; 86901; 87040; 87086; 88304-TC; 93005; 93010; 94010; 94760; 99285-25; C9803; J0131; J1644; U0003; U0005

== ENCOUNTER 2023-12-22 13:37 | Inpatient (IN) | payer BC, OTHER ==
[2023-12-22 13:47] VITALS: BMI 27.7
[2023-12-22] MEDS ORDERED: ONDANSETRON 4 MG/2 ML VIAL ONE (16:17)
[2023-12-22 16:22] LABS: VENOUS BASE EXCESS -0.8 mmol/L (-2-2); VENOUS O2 SATURATION 90.8 % (70-80); VENOUS PCO2 32.6 mmHg (38-52); VENOUS PH 7.458 (7.310-7.410)
[2023-12-22 16:31] LABS: INR 1.06 (0.83-1.09); PROTHROMBIN TIME (PATIENT) 12.3 SEC (9.7-13.0)
[2023-12-22] MEDS: SODIUM CHLORIDE 0.9% 500 ML INFUS.BAG IV ONE (16:31)
[2023-12-22 16:32] LABS: HEMATOCRIT 31.5 % (35.4-49); HEMOGLOBIN 9.9 GM/dL (11.7-16.9); MCH 20.1 pg (25.7-33.7); MCHC 31.3 g/dl (32.0-35.9); MEAN CELL VOLUME 64.1 fl (80-96); MEAN PLT VOLUME 8.1 fl (7.5-11.1); PLATELET COUNT 96 10^3/uL (134-434); RBC 4.92 M/mm3 (4.00-5.60); RDW 21.9 % (11.9-15.9); WHITE BLOOD COUNT 4.3 K/mm3 (4.0-10.0)
[2023-12-22] MEDS: ONDANSETRON 4 MG/2 ML VIAL IVPUSH ONE (16:32)
[2023-12-22 16:34] LABS: ACTIVATED PTT 27.7 SECONDS (25.2-36.5)
[2023-12-22 16:49] LABS: CALCIUM 7.9 mg/dL (8.5-10.1)
[2023-12-22 16:50] LABS: ALBUMIN 3.7 g/dl (3.4-5.0); BLOOD UREA NITROGEN 6.7 mg/dL (7-18); MAGNESIUM 1.6 mg/dL (1.8-2.4)
[2023-12-22 16:52] LABS: CREATININE 0.9 mg/dL (0.55-1.3)
[2023-12-22 16:54] LABS: BILIRUBIN,TOTAL 1.2 mg/dL (0.2-1); TOT PROT 7.6 g/dl (6.4-8.2)
[2023-12-22] MEDS ORDERED: chlordiazePOXIDE HCL 25 MG CAPSULE ONE ×2 (17:34→20:39)
[2023-12-22] MEDS ORDERED: POTASSIUM CHLORIDE ORAL LIQUID 20 MEQ/15 ML ONE (17:35)
[2023-12-22] MEDS ORDERED: MAGNESIUM 1GM/D5W - 1 GM/100 ML IVPB IVPB ONE ×2 (17:35→21:37)
[2023-12-22] MEDS: MAGNESIUM 1GM/D5W - 1 GM/100 ML IVPB IVPB ONE ×2 (17:42→21:51)
[2023-12-22] MEDS: POTASSIUM CHLORIDE ORAL LIQUID 20 MEQ/15 ML PO ONE (17:42)
[2023-12-22] MEDS: chlordiazePOXIDE HCL 25 MG CAPSULE PO ONE ×2 (17:42→20:55)
[2023-12-22] MEDS: FOLIC ACID INJECTION - 1 MG, THIAMINE HCL 100 MG, MULTIVIT INJECTION ADULT 10 ML in SOD... IVPB ONE (18:10)
[2023-12-22 18:13] LABS: ANISOCYTOSIS 2+; PLATELET ESTIMATE DECREASED
[2023-12-22 18:14] LABS: OVALOCYTE 1+
[2023-12-22 18:14] LABS: PH,URINE 7.5 (5.0-8.0); URINE APPEARANCE CLEAR; URINE BILIRUBIN NEGATIVE (NEGATIVE); URINE COLOR YELLOW; URINE GLUCOSE (UA) NEGATIVE (NEGATIVE); URINE KETONE NEGATIVE (NEGATIVE); URINE LEUK ESTERASE NEGATIVE (NEGATIVE); URINE NITRITE NEGATIVE (NEGATIVE); URINE PROTEIN NEGATIVE (NEGATIVE); URINE UROBILINOGEN 0.2 mg/dL (0.2-1.0)
[2023-12-22 18:17] LABS: METHADONE, UR NEGATIVE (NEGATIVE); PHENCYCLIDINE,URINE NEGATIVE (NEGATIVE); URINE BENZODIAZEPINES NEGATIVE (NEGATIVE)
[2023-12-22 18:18] LABS: COCAINE, UR NEGATIVE (NEGATIVE); OPIATES, URI NEGATIVE (NEGATIVE); URINE AMPHETAMINES NEGATIVE (NEGATIVE); URINE BARBITURATES NEGATIVE (NEGATIVE)
[2023-12-22] MEDS ORDERED: ACETAMINOPHEN 325 MG TABLET (FP) PO PRN (19:59)
[2023-12-22] MEDS ORDERED: DOCUSATE SODIUM 100 MG CAPSULE (FP) PO PRN (19:59)
[2023-12-22] MEDS ORDERED: ACETAMINOPHEN 1000 MG/100 ML BAG IVPB PRN (20:11)
[2023-12-22] MEDS ORDERED: chlordiazePOXIDE HCL 25 MG CAPSULE PO PRN (20:12)
[2023-12-22] MEDS ORDERED: KCL 10 MEQ IVPB 10 MEQ/100 ML INFUS.BAG IVPB ONE (20:39)
[2023-12-22] MEDS: SODIUM CHLORIDE 1,000 ML IV SCH (20:54)
[2023-12-22] MEDS: KCL 10 MEQ IVPB 10 MEQ/100 ML INFUS.BAG IVPB SCH (20:55)
[2023-12-23] MEDS ORDERED: chlordiazePOXIDE HCL 25 MG CAPSULE ONE ×3 (00:25→11:15)
[2023-12-23] MEDS: chlordiazePOXIDE HCL 25 MG CAPSULE PO SCH (00:40)
[2023-12-23 07:11] LABS: POTASSIUM 3.4 mmol/L (3.5-5.1)
[2023-12-23 07:12] LABS: POTASSIUM 3.6 mmol/L (3.5-5.1)
[2023-12-23 07:13] LABS: CALCIUM 7.8 mg/dL (8.5-10.1)
[2023-12-23 07:14] LABS: ALBUMIN 3.4 g/dl (3.4-5.0); BLOOD UREA NITROGEN 4.5 mg/dL (7-18); BLOOD UREA NITROGEN 5.2 mg/dL (7-18)
[2023-12-23 07:17] LABS: CREATININE 0.6 mg/dL (0.55-1.3); CREATININE 0.7 mg/dL (0.55-1.3); PHOSPHOROUS 2.9 mg/dL (2.5-4.9)
[2023-12-23 07:19] LABS: BILIRUBIN,TOTAL 1.2 mg/dL (0.2-1)
[2023-12-23 07:20] LABS: HEMATOCRIT 30.3 % (35.4-49); HEMOGLOBIN 9.4 GM/dL (11.7-16.9); MCH 20.1 pg (25.7-33.7); MEAN PLT VOLUME 8.2 fl (7.5-11.1); PLATELET COUNT 95 10^3/uL (134-434); RBC 4.67 M/mm3 (4.00-5.60); RDW 22.1 % (11.9-15.9)
[2023-12-23] MEDS ORDERED: ONDANSETRON 4 MG/2 ML VIAL IVPUSH PRN (08:20)
[2023-12-23 09:59] LABS: ANISOCYTOSIS 2+; MACROCYTOSIS 0; OVALOCYTE 1+
[2023-12-23] MEDS ORDERED: metoPROLOL SUCCINATE 25 MG TAB.SR.24H (FP) PO ONE (10:09)
[2023-12-23] MEDS: metoPROLOL SUCCINATE 25 MG TAB.SR.24H (FP) PO SCH (10:13)
[2023-12-23] MEDS ORDERED: POTASSIUM CHLORIDE ORAL LIQUID 20 MEQ/15 ML PO ONE (13:52)
[2023-12-23] MEDS: POTASSIUM CHLORIDE ORAL LIQUID 20 MEQ/15 ML PO ONE (16:01)
[2023-12-24] MEDS: chlordiazePOXIDE HCL 25 MG CAPSULE PO SCH (04:50)
[2023-12-24 05:35] VITALS: RESP 18
[2023-12-24] MEDS: THIAMINE HCL 200 MG/2 ML VIAL IVPB SCH ×2 (09:23→09:33)
[2023-12-24] MEDS: FOLIC ACID 1 MG TABLET (FP) PO SCH (09:23)
[2023-12-24] MEDS: MULTIVITAMINS (DAILY MVI) TABLET (FP) PO SCH (09:23)
[2023-12-24] MEDS ORDERED: THIAMINE HCL 100 MG TABLET (FP) PO SCH (10:00)
[2023-12-24 10:09] LABS: INR 1.04 (0.83-1.09); PROTHROMBIN TIME (PATIENT) 12.1 SEC (9.7-13.0)
[2023-12-24 10:11] LABS: ACTIVATED PTT 26.7 SECONDS (25.2-36.5)
[2023-12-24 10:29] LABS: BASO % 0.8 % (0-2.0); EOS % 3.6 % (0-4.5); HEMATOCRIT 32.8 % (35.4-49); HEMOGLOBIN 9.8 GM/dL (11.7-16.9); LYMPH % 24.2 % (8-40); MCHC 29.7 g/dl (32.0-35.9); MEAN CELL VOLUME 65.9 fl (80-96); MONO % 8.8 % (3.8-10.2); NEUT % 62.6 % (42.8-82.8); PLATELET COUNT 139 10^3/uL (134-434); RBC 4.99 M/mm3 (4.00-5.60); RDW 23.4 % (11.9-15.9)
[2023-12-24 10:30] LABS: MCH 19.6 pg (25.7-33.7)
[2023-12-24 10:31] LABS: POTASSIUM 3.6 mmol/L (3.5-5.1)
[2023-12-24] MEDS ORDERED: LORazepam 1 MG TABLET PO PRN (10:47)
[2023-12-24] MEDS: SODIUM CHLORIDE 1,000 ML IV SCH (10:59)
[2023-12-24 11:13] LABS: ALBUMIN 3.2 g/dl (3.4-5.0); CREATININE 0.7 mg/dL (0.55-1.3); TOT PROT 7.2 g/dl (6.4-8.2)
[2023-12-24 11:14] LABS: PHOSPHOROUS 2.7 mg/dL (2.5-4.9)
[2023-12-24 11:15] LABS: BILIRUBIN,TOTAL 0.8 mg/dL (0.2-1)
[2023-12-24 11:17] LABS: BILIRUBIN,DIRECT 0.2 mg/dL (0.0-0.2)
[2023-12-24 11:24] LABS: CALCIUM 8.1 mg/dL (8.5-10.1)
[2023-12-24 11:25] LABS: MAGNESIUM 1.6 mg/dL (1.8-2.4)
[2023-12-24 11:26] LABS: BLOOD UREA NITROGEN 6.4 mg/dL (7-18)
[2023-12-24] MEDS ORDERED: chlordiazePOXIDE HCL 10 MG CAPSULE PO PRN (18:32)
[2023-12-24] MEDS: ACETAMINOPHEN 325 MG TABLET (FP) PO PRN (23:59)
[2023-12-25] MEDS ORDERED: chlordiazePOXIDE HCL 10 MG CAPSULE PO PRN
[2023-12-25] MEDS ORDERED: chlordiazePOXIDE HCL 10 MG CAPSULE PO SCH (05:00)
[2023-12-25 08:23] LABS: HEMATOCRIT 31.3 % (35.4-49); HEMOGLOBIN 9.5 GM/dL (11.7-16.9); MCHC 30.2 g/dl (32.0-35.9); MEAN CELL VOLUME 65.8 fl (80-96); MEAN PLT VOLUME 8.1 fl (7.5-11.1); PLATELET COUNT 186 10^3/uL (134-434); RBC 4.75 M/mm3 (4.00-5.60); RDW 22.5 % (11.9-15.9); WHITE BLOOD COUNT 3.7 K/mm3 (4.0-10.0)
[2023-12-25 08:27] LABS: MCH 19.9 pg (25.7-33.7)
[2023-12-25 09:00] LABS: POTASSIUM 3.6 mmol/L (3.5-5.1)
[2023-12-25 09:02] LABS: CALCIUM 8.4 mg/dL (8.5-10.1)
[2023-12-25 09:03] LABS: ALBUMIN 3.1 g/dl (3.4-5.0); BLOOD UREA NITROGEN 9.6 mg/dL (7-18)
[2023-12-25 09:06] LABS: CREATININE 0.7 mg/dL (0.55-1.3)
[2023-12-25 09:08] LABS: BILIRUBIN,TOTAL 0.6 mg/dL (0.2-1); TOT PROT 6.4 g/dl (6.4-8.2)
[2023-12-25 09:39] LABS: ANISOCYTOSIS 2+
[2023-12-25 15:32] VITALS: BP 160/104; PULSE 101; TEMP 98.5
[2023-12-26] MEDS ORDERED: chlordiazePOXIDE HCL 10 MG CAPSULE PO SCH (05:00)
[2023-12-27] MEDS ORDERED: chlordiazePOXIDE HCL 10 MG CAPSULE PO ONE (05:00)
[2023-12-27] MEDS ORDERED: THIAMINE HCL 200 MG/2 ML VIAL IVPB SCH (10:00)
== END 2023-12-25 05:05 | disposition home or self-care (01) | DRG 897 ==
LOC: JER 13:37 → JERBED 18:48 → J6S 12-23 14:28 → OBSVTOIN 12-24 13:24
PROVIDERS: ADMIT Internal Medicine; ATTEND Internal Medicine
DX: F10.230 Alcohol dependence with withdrawal, uncomplicated (principal); E87.3 Alkalosis; I10 Essential (primary) hypertension; I25.2 Old myocardial infarction; E87.6 Hypokalemia; E83.42 Hypomagnesemia; I25.10 Atherosclerotic heart disease of native coronary artery without angina pectoris; Z86.73 Personal history of transient ischemic attack (TIA), and cerebral infarction without residual deficits; Z86.16 Personal history of COVID-19; E83.51 Hypocalcemia; D50.9 Iron deficiency anemia, unspecified; F10.27 Alcohol dependence with alcohol-induced persisting dementia; G62.1 Alcoholic polyneuropathy; R26.81 Unsteadiness on feet; D69.6 Thrombocytopenia, unspecified; E11.65 Type 2 diabetes mellitus with hyperglycemia; F10.220 Alcohol dependence with intoxication, uncomplicated
CPT/HCPCS: 0241U-QW; 36415; 70450-TC; 70551-TC; 80048; 80053; 80307; 81003; 82010; 82140; 82248; 82607; 82728; 82803; 82962; 83036; 83540; 83550; 83615; 83690; 83735; 84100; 84443; 85025; 85610; 85730; 87086; 93005; 93010; 97116-GP; 97162-GP; 99285-25; G0378

== ENCOUNTER 2024-05-15 22:29 | Inpatient (IN) | payer OTHER ==
[2024-05-15 23:24] LABS: BASO % 0.7 % (0-2.0); EOS % 0.9 % (0-4.5); HEMATOCRIT 32.5 % (35.4-49); HEMOGLOBIN 10.3 GM/dL (11.7-16.9); LYMPH % 26.7 % (8-40); MCH 22.2 pg (25.7-33.7); MCHC 31.7 g/dl (32.0-35.9); MEAN CELL VOLUME 70.1 fl (80-96); MEAN PLT VOLUME 7.7 fl (7.5-11.1); MONO % 7.3 % (3.8-10.2); NEUT % 64.4 % (42.8-82.8); PLATELET COUNT 414 10^3/uL (134-434); RBC 4.64 M/mm3 (4.00-5.60); RDW 20.6 % (11.9-15.9); WHITE BLOOD COUNT 11.6 K/mm3 (4.0-10.0)
[2024-05-15 23:29] LABS: INR 1.1 (0.83-1.09); PROTHROMBIN TIME (PATIENT) 12.6 SEC (9.7-13.0)
[2024-05-15 23:32] LABS: ACTIVATED PTT 26.3 SECONDS (25.2-36.5)
[2024-05-15] MEDS ORDERED: ACETAMINOPHEN INJECTION 100 ML IVPB ONE (23:40)
[2024-05-15 23:46] LABS: POTASSIUM 3.8 mmol/L (3.5-5.1)
[2024-05-15 23:48] LABS: ALBUMIN 3.2 g/dl (3.4-5.0); BLOOD UREA NITROGEN 21.9 mg/dL (7-18); MAGNESIUM 2.3 mg/dL (1.8-2.4)
[2024-05-15] MEDS: ACETAMINOPHEN 1000 MG/100 ML BAG IVPB ONE (23:48)
[2024-05-15] MEDS: SODIUM CHLORIDE 0.9% 500 ML INFUS.BAG IV ONE (23:48)
[2024-05-15 23:51] LABS: CREATININE 1.5 mg/dL (0.55-1.3)
[2024-05-15 23:52] LABS: BILIRUBIN,TOTAL 0.3 mg/dL (0.2-1)
[2024-05-15 23:53] LABS: TOT PROT 6.7 g/dl (6.4-8.2)
[2024-05-16] MEDS: SODIUM CHLORIDE 0.9% 500 ML INFUS.BAG IV ONE (01:42)
[2024-05-16 02:10] LABS: ANISOCYTOSIS 1+; OVALOCYTE 1+
[2024-05-16 02:12] LABS: PLATELET ESTIMATE ADEQUATE
[2024-05-16 07:48] LABS: BASO % 1.1 % (0-2.0); HEMATOCRIT 27.4 % (35.4-49); HEMOGLOBIN 8.8 GM/dL (11.7-16.9); LYMPH % 19.9 % (8-40); MCH 22.8 pg (25.7-33.7); MCHC 32.1 g/dl (32.0-35.9); MEAN CELL VOLUME 71.2 fl (80-96); MEAN PLT VOLUME 7.7 fl (7.5-11.1); MONO % 8.1 % (3.8-10.2); NEUT % 69.9 % (42.8-82.8); PLATELET COUNT 282 10^3/uL (134-434); RBC 3.84 M/mm3 (4.00-5.60); RDW 20.5 % (11.9-15.9)
[2024-05-16] MEDS: amLODIPine BESYLATE 5 MG TABLET (FP) PO SCH (11:02)
[2024-05-16] MEDS: ACETAMINOPHEN 325 MG TABLET (FP) PO PRN (11:02)
[2024-05-16] MEDS: FOLIC ACID 1 MG TABLET (FP) PO SCH (11:02)
[2024-05-16] MEDS: metoPROLOL SUCCINATE 25 MG TAB.SR.24H (FP) PO SCH (11:02)
[2024-05-16] MEDS: THIAMINE 100 MG TABLET PO SCH (11:02)
[2024-05-16] MEDS ORDERED: ACETAMINOPHEN 325 MG TABLET (FP) ONE (11:04)
[2024-05-16] MEDS: IRON SUCROSE INJECTION 200 MG in SODIUM CHLORIDE 100 ML IVPB ONE (12:29)
[2024-05-16 13:43] VITALS: BMI 26.4
[2024-05-16 14:34] LABS: BASO % 0.9 % (0-2.0); EOS % 0.9 % (0-4.5); HEMATOCRIT 25.9 % (35.4-49); HEMOGLOBIN 8.4 GM/dL (11.7-16.9); LYMPH % 17.1 % (8-40); MCH 22.6 pg (25.7-33.7); MCHC 32.3 g/dl (32.0-35.9); MEAN CELL VOLUME 70.1 fl (80-96); MEAN PLT VOLUME 7.5 fl (7.5-11.1); MONO % 4.8 % (3.8-10.2); NEUT % 76.3 % (42.8-82.8); PLATELET COUNT 293 10^3/uL (134-434); RDW 20.3 % (11.9-15.9); WHITE BLOOD COUNT 6.7 K/mm3 (4.0-10.0)
[2024-05-16] MEDS: MEMANTINE HCL 10 MG TABLET (FP) PO SCH (21:29)
[2024-05-16] MEDS: DONEPEZIL HCL 10 MG TABLET (FP) PO SCH (21:29)
[2024-05-17 07:59] LABS: BASO % 1.2 % (0-2.0); EOS % 1.5 % (0-4.5); HEMATOCRIT 28.3 % (35.4-49); HEMOGLOBIN 9.1 GM/dL (11.7-16.9); LYMPH % 21.1 % (8-40); MCH 22.8 pg (25.7-33.7); MCHC 32.2 g/dl (32.0-35.9); MEAN CELL VOLUME 70.8 fl (80-96); NEUT % 69.2 % (42.8-82.8); PLATELET COUNT 315 10^3/uL (134-434); RDW 20.3 % (11.9-15.9); WHITE BLOOD COUNT 7.9 K/mm3 (4.0-10.0)
[2024-05-17 08:34] LABS: ALBUMIN 3.1 g/dl (3.4-5.0); CALCIUM 7.7 mg/dL (8.5-10.1)
[2024-05-17 08:37] LABS: CREATININE 0.8 mg/dL (0.55-1.3)
[2024-05-17 08:38] LABS: BILIRUBIN,TOTAL 0.4 mg/dL (0.2-1); TOT PROT 6.6 g/dl (6.4-8.2)
[2024-05-17 12:47] VITALS: BP 136/88; PULSE 80; RESP 17; TEMP 98.6
== END 2024-05-17 14:35 | disposition home or self-care (01) | DRG 394 ==
LOC: JER 22:29 → JERBED 05-16 05:15 → OBSVTOIN 05-16 09:02 → J4W 05-16 13:24
PROVIDERS: ADMIT Family Medicine; ATTEND Internal Medicine
DX: K64.9 Unspecified hemorrhoids (principal); K62.5 Hemorrhage of anus and rectum; N17.9 Acute kidney failure, unspecified; I10 Essential (primary) hypertension; I25.10 Atherosclerotic heart disease of native coronary artery without angina pectoris; I25.2 Old myocardial infarction; G30.9 Alzheimer's disease, unspecified; F02.80 Dementia in other diseases classified elsewhere, unspecified severity, without behavioral disturbance, psychotic disturbance, mood disturbance, and anxiety; D50.9 Iron deficiency anemia, unspecified
CPT/HCPCS: 36415; 74174-TC; 80053; 82105; 82272; 83735; 84484; 85025; 85045; 85610; 85730; 86850; 86900; 86901; 93005; 93010; 99285-25; G0378; J0131; J1756; Q9967

== ENCOUNTER 2024-07-18 12:55 | Inpatient (IN) | payer OTHER ==
[2024-07-18 13:27] VITALS: BMI 26.4
[2024-07-18 13:42] LABS: EOS % 1.1 % (0-4.5); HEMATOCRIT 26.7 % (35.4-49); HEMOGLOBIN 8.1 GM/dL (11.7-16.9); LYMPH % 23.7 % (8-40); MCHC 30.4 g/dl (32.0-35.9); MEAN CELL VOLUME 64.8 fl (80-96); MEAN PLT VOLUME 8.2 fl (7.5-11.1); MONO % 8.5 % (3.8-10.2); NEUT % 65.7 % (42.8-82.8); PLATELET COUNT 381 10^3/uL (134-434); RBC 4.12 M/mm3 (4.00-5.60); RDW 19.8 % (11.9-15.9); WHITE BLOOD COUNT 6.8 K/mm3 (4.0-10.0)
[2024-07-18 13:45] LABS: MCH 19.7 pg (25.7-33.7)
[2024-07-18 13:49] LABS: INR 1.07 (0.83-1.09); PROTHROMBIN TIME (PATIENT) 12.3 SEC (9.7-13.0)
[2024-07-18 13:52] LABS: ACTIVATED PTT 27.4 SECONDS (25.2-36.5)
[2024-07-18] MEDS: SODIUM CHLORIDE 0.9% 1000 ML INFUS.BAG IV ONE (14:02)
[2024-07-18 14:09] LABS: ANISOCYTOSIS 2+; MACROCYTOSIS 0; OVALOCYTE 1+
[2024-07-18 14:10] LABS: POTASSIUM 3.8 mmol/L (3.5-5.1)
[2024-07-18 14:11] LABS: LACTIC ACID 3.4 mmol/L (0.4-2.0)
[2024-07-18 14:12] LABS: ALBUMIN 3.4 g/dl (3.4-5.0); BLOOD UREA NITROGEN 18.8 mg/dL (7-18)
[2024-07-18 14:15] LABS: CREATININE 1.1 mg/dL (0.55-1.3)
[2024-07-18 14:17] LABS: BILIRUBIN,TOTAL 0.4 mg/dL (0.2-1); TOT PROT 6.8 g/dl (6.4-8.2)
[2024-07-18] MEDS: LACTATED RINGERS SOLUTION 1000 ML INFUS.BAG IV ONE (17:31)
[2024-07-18 18:05] LABS: EOS % 0.4 % (0-4.5); HEMATOCRIT 25.5 % (35.4-49); HEMOGLOBIN 7.6 GM/dL (11.7-16.9); LYMPH % 10.3 % (8-40); MCHC 29.9 g/dl (32.0-35.9); MEAN CELL VOLUME 64.4 fl (80-96); MEAN PLT VOLUME 7.6 fl (7.5-11.1); MONO % 5.9 % (3.8-10.2); NEUT % 82.4 % (42.8-82.8); PLATELET COUNT 337 10^3/uL (134-434); RBC 3.96 M/mm3 (4.00-5.60); RDW 20.3 % (11.9-15.9); WHITE BLOOD COUNT 8.5 K/mm3 (4.0-10.0)
[2024-07-18 18:09] LABS: ADD RBC MORPHOLOGY YES; MCH 19.3 pg (25.7-33.7)
[2024-07-18 20:25] LABS: RETICULOCYTES 1.54 % (0.5-1.5)
[2024-07-18] MEDS ORDERED: DOCUSATE SODIUM 100 MG CAPSULE (FP) PO ONE ×2 (22:33→22:34)
[2024-07-18] MEDS: DOCUSATE SODIUM 100 MG CAPSULE (FP) PO SCH (22:38)
[2024-07-19 08:31] LABS: BASO % 1.3 % (0-2.0); EOS % 1.7 % (0-4.5); HEMOGLOBIN 8.1 GM/dL (11.7-16.9); LYMPH % 20.3 % (8-40); MCH 20.4 pg (25.7-33.7); MCHC 31.3 g/dl (32.0-35.9); MEAN CELL VOLUME 65.3 fl (80-96); MEAN PLT VOLUME 8.3 fl (7.5-11.1); MONO % 7.9 % (3.8-10.2); NEUT % 68.8 % (42.8-82.8); PLATELET COUNT 335 10^3/uL (134-434); RBC 3.98 M/mm3 (4.00-5.60); RDW 21.3 % (11.9-15.9); WHITE BLOOD COUNT 5.2 K/mm3 (4.0-10.0)
[2024-07-19 08:41] LABS: POTASSIUM 3.9 mmol/L (3.5-5.1)
[2024-07-19 08:45] LABS: CALCIUM 8.1 mg/dL (8.5-10.1)
[2024-07-19 08:46] LABS: BLOOD UREA NITROGEN 16.7 mg/dL (7-18); MAGNESIUM 2.1 mg/dL (1.8-2.4)
[2024-07-19 08:49] LABS: CREATININE 0.8 mg/dL (0.55-1.3); PHOSPHOROUS 3.2 mg/dL (2.5-4.9)
[2024-07-19] MEDS: PANTOPRAZOLE SODIUM 40 MG VIAL IVPUSH SCH (09:22)
[2024-07-19] MEDS: MEMANTINE HCL 10 MG TABLET (FP) PO SCH (10:25)
[2024-07-19] MEDS: SODIUM CHLORIDE 1,000 ML IV SCH (10:25)
[2024-07-19] MEDS: DONEPEZIL HCL 10 MG TABLET (FP) PO SCH (10:25)
[2024-07-19] MEDS: ACETAMINOPHEN 325 MG TABLET (FP) PO PRN (14:32)
[2024-07-20 08:20] LABS: POTASSIUM 3.3 mmol/L (3.5-5.1)
[2024-07-20 08:30] LABS: ALBUMIN 3.2 g/dl (3.4-5.0); BLOOD UREA NITROGEN 12.7 mg/dL (7-18)
[2024-07-20 08:32] LABS: HEMATOCRIT 26.9 % (35.4-49); HEMOGLOBIN 8.2 GM/dL (11.7-16.9); MCH 20.2 pg (25.7-33.7); MCHC 30.6 g/dl (32.0-35.9); MEAN CELL VOLUME 66.2 fl (80-96); MEAN PLT VOLUME 7.7 fl (7.5-11.1); PLATELET COUNT 313 10^3/uL (134-434); RBC 4.06 M/mm3 (4.00-5.60); RDW 21.4 % (11.9-15.9); WHITE BLOOD COUNT 5.4 K/mm3 (4.0-10.0)
[2024-07-20 08:33] LABS: CREATININE 0.9 mg/dL (0.55-1.3)
[2024-07-20 08:35] LABS: TOT PROT 6.4 g/dl (6.4-8.2)
[2024-07-20] MEDS: THIAMINE 100 MG TABLET PO SCH (12:50)
[2024-07-20] MEDS: IRON SUCROSE INJECTION 200 MG in SODIUM CHLORIDE 100 ML IVPB ONE (12:51)
[2024-07-20] MEDS: POTASSIUM CHLORIDE ORAL LIQUID 20 MEQ/15 ML PO ONE ×2 (12:52→18:11)
[2024-07-20] MEDS: POLYETHYLENE GLYCOL (HEALTHYLAX) 3350 17 GM PACKET PO SCH (18:11)
[2024-07-20] MEDS: INSULIN ASPART SLIDING SCALE (NOVOLOG) 1 VIAL SQ SCH (19:05)
[2024-07-21 08:38] LABS: HEMATOCRIT 27.3 % (35.4-49); HEMOGLOBIN 8.5 GM/dL (11.7-16.9); MCH 20.6 pg (25.7-33.7); MEAN CELL VOLUME 66.2 fl (80-96); MEAN PLT VOLUME 8.1 fl (7.5-11.1); PLATELET COUNT 336 10^3/uL (134-434); RBC 4.12 M/mm3 (4.00-5.60); RDW 21.2 % (11.9-15.9); WHITE BLOOD COUNT 6.6 K/mm3 (4.0-10.0)
[2024-07-21 15:17] VITALS: BP 148/90; PULSE 76; RESP 18; TEMP 96.7
== END 2024-07-21 18:37 | disposition home or self-care (01) | DRG 812 ==
LOC: JER 12:55 → JERBED 18:28 → J4W 23:44
PROVIDERS: ADMIT Internal Medicine; ATTEND Internal Medicine
PROC: 30233N1 Transfusion of Nonautologous Red Blood Cells into Peripheral Vein, Percutaneous Approach (ICD-10-PCS; principal; 2024-07-18)
DX: D50.9 Iron deficiency anemia, unspecified (principal); K92.2 Gastrointestinal hemorrhage, unspecified; I10 Essential (primary) hypertension; E78.5 Hyperlipidemia, unspecified; E11.9 Type 2 diabetes mellitus without complications; I25.10 Atherosclerotic heart disease of native coronary artery without angina pectoris; K59.00 Constipation, unspecified; R55 Syncope and collapse; G30.9 Alzheimer's disease, unspecified; F02.80 Dementia in other diseases classified elsewhere, unspecified severity, without behavioral disturbance, psychotic disturbance, mood disturbance, and anxiety; N40.0 Benign prostatic hyperplasia without lower urinary tract symptoms; K44.9 Diaphragmatic hernia without obstruction or gangrene; K57.90 Diverticulosis of intestine, part unspecified, without perforation or abscess without bleeding; R16.2 Hepatomegaly with splenomegaly, not elsewhere classified
CPT/HCPCS: 36415; 36430; 74174-TC; 80048; 80053; 82272; 82550; 82553; 82607; 82728; 82746; 82962; 83036; 83540; 83550; 83605; 83615; 83735; 84100; 84484; 85025; 85027; 85045; 85610; 85730; 86850; 86900; 86901; 86922; 93005; 93010; 99285-25; J1756; P9058